=== PATIENT | female | born 1940 | race Caucasian/White ===

== ENCOUNTER 2016-09-27 11:03 | Emergency (ER) | payer BC ==
[2016-09-27] MEDS ORDERED: METHYLPREDNISOLONE PF 125MG/VIAL IVP ONE (11:18)
[2016-09-27] MEDS ORDERED: DIPHENHYDRAMINE HCL IV 50 MG/ML VIAL IVP ONE (11:18)
[2016-09-27] MEDS ORDERED: 0.9 % SODIUM CHLORIDE 1,000 ML BAG IV ONE (11:28)
--- NOTE | 2016-09-27 11:34 | Emergency Department Record ---
History of Present Illness - General Chief complaint: Bite Insect/other Stated complaint: BEE STING Time Seen by Provider: 09/27/16 11:18 Source: Patient Mode of Arrival: Ambulatory Limitations: No limitations - History of Present Illness Initial comments: pt was stung by a bee or wasp. she is allergic to bees. she did not use her epipen. she usually breaks out in hives and passes out. she has not broke out in a rash yet and is not sob. MD complaint: Insect bite/sting Onset/Timin -: Minutes(s) Hx Tetanus Toxoid Vaccination: (unsure) Location: [facility] hand Severity scale (1-10): 3 Improves with: None Worsens with: None Associated symptoms: Denies other symptoms - Related Data Home Medications Medication Instructions Recorded Confirmed Last Taken Clonazepam 0.5 mg PO BID 07/20/13 09/27/16 09/26/16 Epinephrine [Epipen] 0.3 mg IJ ASDIR PRN 07/20/13 09/27/16 07/20/13 15:00 Fenofibrate 50 mg PO ASDIR 11/04/15 09/27/16 09/26/16 Rosuvastatin Calcium [Crestor] 5 mg PO DAILY 11/04/15 09/27/16 09/26/16 Lisinopril [Zestril] 5 mg PO 09/27/16 09/26/16 Allergies Allergy/AdvReac Type Severity Reaction Status Date / Time ibuprofen [From Motrin] Allergy HIVES Verified 11/04/15 10:48 Penicillins Allergy HIVES Verified 11/04/15 10:48 sulfamethoxazole Allergy HIVES Verified 11/04/15 10:48 [From Bactrim] trimethoprim [From Bactrim] Allergy HIVES Verified 11/04/15 10:48 Travel Screening - Travel/Exposure Within Last 30 Days Have you traveled within the last 30 days?: No - Travel/Exposure Within Last Year Have you traveled outside the [place] in the last year?: No - Additonal Travel Details Have you been exposed to anyone with a communicable illness?: No - Travel Symptoms Symptom Screening: None Review of Systems Reviewed: No additional complaints except as noted below Constitutional: Reports: As per HPI. Denies: Chills, Fever, Malaise, Night sweats, Weakness, Weight change Eyes: Reports: As per HPI. Denies: Eye discharge, Eye pain, Photophobia, Vision change ENT: Reports: As per HPI. Denies: Congestion, Dental pain, Ear pain, Epistaxis , Hearing loss, Throat pain Respiratory: Reports: As per HPI. Denies: Cough, Dyspnea, Hemoptysis, Stridor, Wheezes Cardiovascular: Reports: As per HPI. Denies: Arrhythmia, Chest pain, Dyspnea on exertion, Edema, Murmurs, Orthopnea, Palpitations, Paroxysmal nocturnal dyspnea, Rheumatic Fever, Syncope Endocrine: Reports: As per HPI. Denies: Fatigue, Heat or cold intolerance, Polydipsia, Polyuria Gastrointestinal: Reports: As per HPI. Denies: Abdominal pain, Constipation, Diarrhea, Hematemesis, Hematochezia, Melena, Nausea, Vomiting Genitourinary: Reports: As per HPI. Denies: Abnormal menses, Discharge, Dyspareunia, Dysuria, Frequency, Hematuria, Incontinence, Retention, Urgency Musculoskeletal: Reports: As per HPI. Denies: Arthralgia, Back pain, Gout, Joint swelling, Myalgia, Neck pain Skin: Reports: As per HPI. Denies: Bruising, Change in color, Change in hair/ nails, Lesions, Pruritus, Rash Neurological: Reports: As per HPI. Denies: Abnormal gait, Confusion, Headache, Numbness, Paresthesias, Seizure, Tingling, Tremors, Vertigo, Weakness Psychiatric: Reports: As per HPI. Denies: Anxiety, Auditory hallucinations, Depression, Homicidal thoughts, Suicidal thoughts, Visual hallucinations Hematological/Lymphatic: Reports: As per HPI. Denies: Anemia, Blood Clots, Easy bleeding, Easy bruising, Swollen glands Past Medical History - SOCIAL HISTORY Smoking Status: Current every day smoker Alcohol Use: None Drug Use: None - RESPIRATORY Hx Respiratory Disorders: No - CARDIOVASCULAR Hx Cardio Disorders: Yes Hx Hypertension: (on meds to help kidney function) Comment:: high cholesterol - NEURO Hx Neuro Disorders: Yes Hx Neuropathy: Yes (Diagnosed in last 6 months) - GI Hx GI Disorders: Yes Hx GI Bleed: Yes (hbg 6.5) - Hx Genitourinary Disorders: Yes Hx Renal Disease: Yes (Recent diagnosis- Dr. 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) - MUSCULOSKELETAL Hx Musculoskeletal Disorders: No - PSYCH Hx Psych Problems: Yes Hx Anxiety: Yes ("panic attacks") - HEMATOLOGY/ONCOLOGY Hx Hematology/Oncology Disorders: Yes Hx Cancer: Yes (Breast cancer) Hx Radiation Therapy: Yes (2002) Hx Blood Transfusions: Yes (At 18yrs old) Hx Blood Transfusion Reaction: No Family Medical History Any Significant Family History?: No Family Hx Comment (NOT TO BE USED IN PLACE OF ITEMS BELOW): mother-von wildebrans Hx Cancer: Grandparents Hx Diabetes: Mother *Diabetes Comment: Age 72 at onset Hx Heart Disease: Grandparents Hx Seizures: Brother/Sister *Seizure Comment: Sister has MS and Lupus, some seizures Hx Stroke: Father Physical Exam - General General Appearance: Alert, Oriented x3, Cooperative, No acute distress - Head Head exam: Normal inspection - Eye Eye exam: Normal appearance, PERRL, EOMI Pupils: Normal accommodation - ENT ENT exam: Normal exam, Mucous membranes moist, Normal external ear exam, Normal orophraynx Ear exam: Normal external inspection. negative: External canal tenderness Nasal Exam: Normal inspection. negative: Discharge, Sinus tenderness Mouth exam: Normal external inspection, Tongue normal Teeth exam: Normal inspection. negative: Dental caries Throat exam: Normal inspection. negative: Tonsillar erythema, Tonsillar exudate - Neck Neck exam: Normal inspection, Full ROM. negative: Tenderness - Respiratory Respiratory exam: Normal lung sounds bilaterally. negative: Respiratory distress - Cardiovascular Cardiovascular Exam: Regular rate, Normal rhythm, Normal heart sounds - GI/Abdominal GI/Abdominal exam: Soft, Normal bowel sounds. negative: Tenderness - Rectal Rectal exam: Deferred - exam: Deferred - Extremities Extremities exam: Normal inspection, Full ROM, Normal capillary refill, Tenderness ( and swelling l hand), Other - Back Back exam: Reports: Normal inspection, Full ROM. Denies: Muscle spasm, Rash noted, Tenderness - Neurological Neurological exam: Alert, Normal gait, Oriented X3, Reflexes normal - Psychiatric Psychiatric exam: Normal affect, Normal mood - Skin Skin exam: Dry, Intact, Normal color, Warm Course Vital Signs 09/27/16 11:06 Temperature 97.8 F Pulse Rate 91 H Respiratory 20 Rate Blood Pressure 153/79 Pulse Ox 97 - Reevaluation(s) Reevaluation #1: 09/27/16 12:47 pt is feeling better Disposition Disposition: Discharge Clinical Impression: Bee sting allergy Bee sting Qualifiers: Encounter type: initial encounter Injury intent: undetermined intent Qualified Code(s): T63.444A - Toxic effect of venom of bees, undetermined, initial encounter Disposition: Home, Self-Care Condition: (1) Good Instructions: Insect Bite or Sting (ED) Additional Instructions: follow up with family doctor. return sooner if worse. continue benadryl if needed. Forms: Patient Portal Access Quality - Quality Measures Quality Measures: N/A - Blood Pressure Screening Blood Pressure Classification: Hypertensive Reading Systolic Measurement: 153 Diastolic Measurement: 79 Screening for High Blood Pressure: < First Hypertensive BP, F/U Documented > [ G8950] First Hypertensive Follow-up Interventions: Follow-up with rescreen GT 1 day and LT 4 weeks.
== END 2016-09-27 13:01 | disposition home or self-care (01) ==
LOC: ER 11:03
DX: T63.441A Toxic effect of venom of bees, accidental (unintentional), initial encounter (principal)
CPT/HCPCS: 96374; 96375; 99284; J1200; J2930; J7030

== ENCOUNTER 2016-10-22 09:00 | Emergency (ER) | payer BC ==
--- NOTE | 2016-10-22 09:17 | Emergency Department Record ---
History of Present Illness - General Chief complaint: Extremity Problem Stated complaint: L HAND SWOLLEN Time Seen by Provider: 10/22/16 09:09 Source: Patient Mode of Arrival: Ambulatory Limitations: No limitations - History of Present Illness Initial comments: The patient is here due to L wrist and hand pain for about a week. She denies any fall or trauma. The patient was stung in the L wrist about a month ago but did see her PCP and receive Steroid pills for that and did improve. Now about a week or so ago the L wrist and hand became painful. She states about 3 days ago the wrist started to swell also. There is no reported fever, chills, vomiting, TRACY, or rashes. MD Complaint: Extremity pain Onset/Timin -: Week(s) Location: Left, Hand Severity scale (1-10): 7 Consistency: Constant Improves with: Nothing Associated Symptoms: Denies other symptoms - Related Data Home Medications Medication Instructions Recorded Confirmed Last Taken Clonazepam 0.5 mg PO BID 07/20/13 10/22/16 09/26/16 Epinephrine [Epipen] 0.3 mg IJ ASDIR PRN 07/20/13 10/22/16 07/20/13 15:00 Fenofibrate 50 mg PO ASDIR 11/04/15 10/22/16 09/26/16 Rosuvastatin Calcium [Crestor] 5 mg PO DAILY 11/04/15 10/22/16 09/26/16 Lisinopril [Zestril] 5 mg PO QHS 09/27/16 10/22/16 10/21/16 Previous Rx's Medication Instructions Recorded Prednisone [Prednisone 20Mg] 40 mg PO DAILY #8 tab 10/22/16 Allergies Allergy/AdvReac Type Severity Reaction Status Date / Time ibuprofen [From Motrin] Allergy HIVES Verified 11/04/15 10:48 Penicillins Allergy HIVES Verified 11/04/15 10:48 sulfamethoxazole Allergy HIVES Verified 11/04/15 10:48 [From Bactrim] trimethoprim [From Bactrim] Allergy HIVES Verified 11/04/15 10:48 Travel Screening - Travel/Exposure Within Last 30 Days Have you traveled within the last 30 days?: No - Travel/Exposure Within Last Year Have you traveled outside the [place] in the last year?: No - Additonal Travel Details Have you been exposed to anyone with a communicable illness?: No - Travel Symptoms Symptom Screening: None Review of Systems Constitutional: Denies: Chills, Fever Eyes: Denies: Eye discharge ENT: Denies: Congestion Respiratory: Denies: Cough, Dyspnea Past Medical History - SOCIAL HISTORY Smoking Status: Current every day smoker Alcohol Use: None Drug Use: None - RESPIRATORY Hx Respiratory Disorders: No - CARDIOVASCULAR Hx Cardio Disorders: Yes Hx Hypertension: (on meds to help kidney function) Comment:: high cholesterol - NEURO Hx Neuro Disorders: Yes Hx Neuropathy: Yes (Diagnosed in last 6 months) - GI Hx GI Disorders: Yes Hx GI Bleed: Yes (hbg 6.5) - Hx Genitourinary Disorders: Yes Hx Renal Disease: Yes (Recent diagnosis- Dr. 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) - MUSCULOSKELETAL Hx Musculoskeletal Disorders: No - PSYCH Hx Psych Problems: Yes Hx Anxiety: Yes ("panic attacks") - HEMATOLOGY/ONCOLOGY Hx Hematology/Oncology Disorders: Yes Hx Cancer: Yes (Breast cancer) Hx Radiation Therapy: Yes (2002) Hx Blood Transfusions: Yes (At 18yrs old) Hx Blood Transfusion Reaction: No Family Medical History Any Significant Family History?: No Family Hx Comment (NOT TO BE USED IN PLACE OF ITEMS BELOW): mother-raquel paulinos Hx Cancer: Grandparents Hx Diabetes: Mother *Diabetes Comment: Age 72 at onset Hx Heart Disease: Grandparents Hx Seizures: Brother/Sister *Seizure Comment: Sister has MS and Lupus, some seizures Hx Stroke: Father Physical Exam - General General Appearance: Alert, Cooperative, No acute distress - Head Head exam: Atraumatic, Normocephalic, Normal inspection - Eye Eye exam: Normal appearance, PERRL - Neck Neck exam: Normal inspection, Full ROM. negative: Tenderness - Respiratory Respiratory exam: Normal lung sounds bilaterally. negative: Respiratory distress - Cardiovascular Cardiovascular Exam: Regular rate, Normal rhythm, Normal heart sounds - Extremities Extremities exam: Normal capillary refill, Tenderness (There is diffuse tenderness to the dorsal wrist to palpation with very mild warmth but no erythema.). negative: Normal inspection (There is slight edema to the dorsal wrist but no swelling to the fingers.), Full ROM (decreased flexion and extention due to pain.) - Neurological Neurological exam: Alert. negative: Motor sensory deficit Course Vital Signs 10/22/16 09:02 Temperature 98.1 F Pulse Rate 99 H Respiratory 16 Rate Blood Pressure 161/85 Pulse Ox 99 - Reevaluation(s) Reevaluation #1: The patient is doing a lot better at this time. I did explain to her that the issue I believe is due to an inflammatory arthropathy. We will place the patient on Prednisone and splint the wrist and have her F/U with her PCP early next week for recheck. 10/22/16 10:41 Medical Decision Making - Data Complexity MDM Data: Labs Ordered and/or Reviewed, X-Ray Ordered and/or Reviewed - Lab Data Result diagrams: 10/22/16 09:32 10/22/16 09:32 - Radiology Data Radiology results: Report reviewed (L wrist: Neg.) Disposition Disposition: Discharge Clinical Impression: Wrist arthropathy Disposition: Home, Self-Care Condition: (1) Good Instructions: Arthritis (ED) Additional Instructions: Please wear the splint for comfort and ice the wrist when possible. Please continue the Prednisone tomorrow. Please F/U with your PCP early next week. Return to the ER for any increased pain, swelling, fever or redness. Prescriptions: Prednisone [Prednisone 20Mg] 40 mg PO DAILY #8 tab Forms: Patient Portal Access Time of Disposition: 10:46 Quality - Quality Measures Quality Measures: N/A - Blood Pressure Screening View Details: Yes Does Patient Have Any of the Following: No Blood Pressure Classification: Pre-Hypertensive BP Reading Systolic Measurement: 161 Diastolic Measurement: 85 Screening for High Blood Pressure: < Pre-Hypertensive BP, F/U Documented > [ G8950] Pre-Hypertensive Follow-up Interventions: Referral to alternative/primary care provider.
[2016-10-22] MEDS: ACETAMINOPHEN 325 MG TAB PO ONE (09:25)
[2016-10-22 09:38] LABS: GRAN % 63.2 % (47-80); HEMATOCRIT 28.8 % (35.0-47.0); HEMOGLOBIN 9.5 gm/dl (11.6-16.0); LYMPH % 25.6 % (16-45); MEAN CELL VOLUME 91.7 fl (81-97); MEAN PLATELET VOLUME 8.7 fl (7.4-10.4); MONO % 10.2 % (0-9); PLATELET COUNT 386 K/uL (130-400); RED BLOOD COUNT 3.14 M/uL (3.80-5.40); RED CELL DISTRIBUTION WIDTH 15.2 % (11.5-14.5); WHITE BLOOD COUNT W/O DIFF 5.9 K/uL (4.2-12.2)
[2016-10-22 09:40] LABS: MEAN CORPUSCULAR HEMOGLOBIN 30.2 pg (27-33)
[2016-10-22 10:27] LABS: C-REACTIVE PROTEIN 3.6 mg/dL (0.0-0.9)
[2016-10-22 10:30] LABS: ERYTHROCYTE SEDIMENTATION RATE 97 mm/hr (0-30)
[2016-10-22] MEDS: PREDNISONE 20 MG TAB PO ONE (10:49)
--- NOTE | 2016-10-24 10:59 | RADIOLOGY REPORT ---
EXAM: LEFT WRIST, FOUR VIEWS HISTORY: PATIENT HAS GENERALIZED LEFT WRIST PAIN AND SWELLING RADIATING INTO THE PHALANGES OF THE LEFT HAND. NO HISTORY OF TRAUMA. TECHNIQUE: Four views of the left wrist were provided without comparison studies. FINDINGS: There is no radiographic evidence of a fracture or dislocation of the left wrist. No significant soft tissue swelling is noted. There is moderate joint space loss with marginal osteophyte formation of the first carpal metacarpal articulation. Alignment of the carpal bones are anatomic. IMPRESSION: OSTEOARTHRITIC CHANGES OF THE LEFT WRIST ARE NOTED WITHOUT RADIOGRAPHIC EVIDENCE OF AN ACUTE PROCESS INVOLVING THE LEFT WRIST. JOB NUMBER: [id number] MTDD
== END 2016-10-22 11:10 | disposition home or self-care (01) ==
LOC: ER 09:00
DX: M12.832 Other specific arthropathies, not elsewhere classified, left wrist (principal); I10 Essential (primary) hypertension; F17.210 Nicotine dependence, cigarettes, uncomplicated
CPT/HCPCS: 29125; 99283; 99284; 85025; 85651; 86140; 80048; 73110; J7512

== ENCOUNTER 2017-03-12 15:03 | Emergency (ER) | payer BC ==
[2017-03-12] MEDS ORDERED: ACETAMINOPHEN 500 MG TABLET PO ONE (16:16)
--- NOTE | 2017-03-12 16:21 | Emergency Department Record ---
History of Present Illness - General Chief Complaint: Cough Stated Complaint: CHEST CONGESTION,COUGH, Time Seen by Provider: 03/12/17 16:15 Source: Patient Mode of Arrival: Ambulatory Limitations: No limitations - History of Present Illness Initial Comments: 76 yo female presents to ED for evaluation of fever, body aches, and cough symptoms that began this morning. Patient denies recent illness, denies recent ill contacts. Patient denies health problems at her baseline, and denies nausea /vomiting or abdominal pain symptoms. Patient denies taking anything for her symptoms prior to arrival. MD Complaint: Cough, Fever Onset/Timin -: Hour(s) Severity: Moderate Severity scale (1-10): 6 Consistency: Constant Improves With: Nothing Worsens With: Deep breaths Associated Symptoms: Cough, Fever, Myalgias Treatments Prior to Arrival: None - Related Data Previous Rx's Medication Instructions Recorded Azithromycin [Zithromax] 250 mg PO DAILY #4 tablet 03/12/17 Promethazine HCl/Codeine 5 - 10 ml PO .AT BEDTIME PRN #118 03/12/17 [Phenergan W/Codeine] ml Allergies Allergy/AdvReac Type Severity Reaction Status Date / Time ibuprofen [From Motrin] Allergy HIVES Verified 03/12/17 16:07 Penicillins Allergy HIVES Verified 03/12/17 16:07 sulfamethoxazole Allergy HIVES Verified 03/12/17 16:07 [From Bactrim] trimethoprim [From Bactrim] Allergy HIVES Verified 03/12/17 16:07 Travel Screening - Travel/Exposure Within Last 30 Days Have you traveled within the last 30 days?: No Review of Systems Constitutional: Reports: Chills, Fever, Weakness. Denies: Malaise, Night sweats Eyes: Denies: Eye discharge, Eye pain ENT: Denies: Congestion, Ear pain, Epistaxis Respiratory: Reports: Cough. Denies: Dyspnea Cardiovascular: Denies: Chest pain, Dyspnea on exertion, Edema Endocrine: Denies: Fatigue, Heat or cold intolerance Gastrointestinal: Denies: Abdominal pain, Nausea, Vomiting Genitourinary: Denies: Incontinence, Retention Musculoskeletal: Reports: Myalgia. Denies: Arthralgia, Back pain, Gout, Joint swelling Skin: Denies: Bruising, Change in color Neurological: Reports: Headache. Denies: Abnormal gait, Confusion, Seizure Psychiatric: Denies: Anxiety Hematological/Lymphatic: Denies: Anemia, Blood Clots Past Medical History - SOCIAL HISTORY Smoking Status: Current every day smoker Alcohol Use: None Drug Use: None - RESPIRATORY Hx Respiratory Disorders: No - CARDIOVASCULAR Hx Cardio Disorders: Yes Comment:: high cholesterol - NEURO Hx Neuro Disorders: Yes Hx Neuropathy: Yes - GI Hx GI Disorders: Yes Hx GI Bleed: Yes - Hx Genitourinary Disorders: Yes Hx Renal Disease: Yes - ENDOCRINE Hx Endocrine Disorders: Yes Hx Thyroid Disease: Yes - MUSCULOSKELETAL Hx Musculoskeletal Disorders: Yes Hx Arthritis: Yes - PSYCH Hx Psych Problems: Yes Hx Anxiety: Yes ("panic attacks") - HEMATOLOGY/ONCOLOGY Hx Hematology/Oncology Disorders: Yes Hx Cancer: Yes (Breast cancer) Hx Radiation Therapy: Yes (2002) Hx Blood Transfusions: Yes (At 18yrs old) Hx Blood Transfusion Reaction: No Family Medical History Any Significant Family History?: Yes Family Hx Comment (NOT TO BE USED IN PLACE OF ITEMS BELOW): mother-raquel bhattrans Hx Cancer: Grandparents Hx Diabetes: Mother *Diabetes Comment: Age 72 at onset Hx Heart Disease: Grandparents Hx Seizures: Brother/Sister *Seizure Comment: Sister has MS and Lupus, some seizures Hx Stroke: Father Physical Exam - General General Appearance: Alert, Oriented x3, Cooperative, Moderate distress Limitations: No limitations - Head Head exam: Atraumatic, Normocephalic, Normal inspection Head exam detail: negative: Abrasion, Contusion, Colon's sign, General tenderness, Hematoma, Laceration - Eye Eye exam: Normal appearance. negative: Conjunctival injection, Periorbital swelling, Periorbital tenderness, Scleral icterus - ENT Ear exam: negative: Auricular hematoma, Auricular trauma Nasal Exam: negative: Active bleeding, Discharge, Dried blood, Foreign body Mouth exam: negative: Drooling, Laceration, Tongue elevation - Neck Neck exam: Normal inspection. negative: Meningismus, Tenderness - Respiratory Respiratory exam: Decreased breath sounds. negative: Rales, Respiratory distress, Rhonchi, Stridor - Cardiovascular Cardiovascular Exam: Normal rhythm, Normal heart sounds, Tachycardia - GI/Abdominal GI/Abdominal exam: Soft. negative: Rebound, Rigid, Tenderness - Rectal Rectal exam: Deferred - exam: Deferred - Extremities Extremities exam: Normal inspection. negative: Calf tenderness, Pedal edema, Tenderness - Back Back exam: Denies: CVA tenderness (R), CVA tenderness (L) - Neurological Neurological exam: Alert, Normal gait, Oriented X3 - Psychiatric Psychiatric exam: Normal affect, Normal mood - Skin Skin exam: Normal color. negative: Abrasion Type of lesion: negative: abrasion Course Vital Signs 03/12/17 16:03 Temperature 102.0 F H Pulse Rate 125 H Respiratory 20 Rate Blood Pressure 97/57 Pulse Ox 96 - Reevaluation(s) Reevaluation #1: 03/12/17 17:33 Labs reviewed, WBC 10.1 with 83% neutrophils, Hgb 9.9, Glucose 150. Influenza negative. CXR: No acute process Patient was updated on all results, will initiate treatement with Rocephin IV and Zithromax orally for probable early CAP. Patient was offered admission for her symptoms, declined at this time. Will treat with oral Zithromax following discharge with encouragement to return to ED immediately for any worsening of her symptoms. Patient agrees with the plan as discussed. Reevaluation #2: 03/12/17 17:41 Medical Decision Making - Lab Data Result diagrams: 03/12/17 16:27 03/12/17 16:27 Disposition Disposition: Discharge Clinical Impression: CAP (community acquired pneumonia) Qualifiers: Laterality: unspecified laterality Qualified Code(s): J18.9 - Pneumonia, unspecified organism Fever Qualifiers: Fever type: unspecified Qualified Code(s): R50.9 - Fever, unspecified Disposition: Home, Self-Care Condition: (2) Stable Instructions: Community Acquired Pneumonia (ED) Additional Instructions: Return to ED if your symptoms worsen or if you have any concerns. Zithromax and phenergan with codeine as directed. Follow-up with your family doctor in 1-3 days as directed. Prescriptions: Azithromycin [Zithromax] 250 mg PO DAILY #4 tablet Promethazine HCl/Codeine [Phenergan W/Codeine] 5 - 10 ml PO .AT BEDTIME PRN # 118 ml PRN Reason: Cough Forms: Patient Portal Access Time of Disposition: 18:04 Quality - Quality Measures Quality Measures: N/A - Blood Pressure Screening Does Patient Have Any of the Following: No Blood Pressure Classification: Normal BP Reading Systolic Measurement: 97 Diastolic Measurement: 57 Screening for High Blood Pressure: < Normal BP, F/U Not Required > [G8783]
[2017-03-12 16:30] LABS: INFLUENZA A NEGATIVE (NEGATIVE); INFLUENZA B NEGATIVE (NEGATIVE)
[2017-03-12] MEDS ORDERED: 0.9 % SODIUM CHLORIDE 1000ML 1,000 ML IV SCH (16:30)
[2017-03-12 16:48] LABS: HEMOGLOBIN 9.9 gm/dl (11.6-16.0); MEAN CELL VOLUME 87.8 fl (81-97); MEAN CORPUSCULAR HGB CONC 31.9 g/dl (32-36); MEAN PLATELET VOLUME 10.1 fl (7.4-10.4); PLATELET COUNT 391 K/uL (130-400); RED BLOOD COUNT 3.53 M/uL (3.80-5.40); RED CELL DISTRIBUTION WIDTH 16.5 % (11.5-14.5); WHITE BLOOD COUNT W/O DIFF 10.1 K/uL (4.2-12.2)
[2017-03-12 17:03] LABS: BILIRUBIN,TOTAL 0.4 mg/dL (0.2-1.0)
[2017-03-12 17:04] LABS: HYPOCHROMIA 1+; PLATELET ESTIMATE NORMAL (NORMAL); TOTAL PROTEIN 6.8 g/dL (6.6-8.7)
[2017-03-12 17:09] LABS: ALB/GLOB RATIO 1.2 (1.1-1.8); ALBUMIN 3.7 g/dL (4.0-5.0)
[2017-03-12] MEDS ORDERED: KCENTRA (PCC) 1,000 UNIT KIT IV ONE (17:24)
[2017-03-12] MEDS ORDERED: AZITHROMYCIN 500 MG TABLET PO ONE (17:31)
[2017-03-12] MEDS ORDERED: CEFTRIAXONE SODIUM 1 GM in 0.9 % SODIUM CHLORIDE 100ML 100 ML IVPB ONE (17:31)
--- NOTE | 2017-03-14 01:05 | RADIOLOGY REPORT ---
EXAM: CHEST 2 VIEWS HISTORY: FEVER AND COUGH. TECHNIQUE: Chest, two view. COMPARISON: None. FINDINGS: The heart is not enlarged. Coarsened interstitial markings within the lungs, likely related to scarring/fibrosis. No focal consolidation or pleural effusion. Previous surgical change right humeral head. IMPRESSION: NO ACUTE CARDIOPULMONARY ABNORMALITY. JOB NUMBER: [id number] MTDD
== END 2017-03-12 18:35 | disposition home or self-care (01) ==
LOC: ER 15:03
DX: J18.9 Pneumonia, unspecified organism (principal); R50.81 Fever presenting with conditions classified elsewhere; F17.210 Nicotine dependence, cigarettes, uncomplicated
CPT/HCPCS: 71020; 80053; 85027; 87400; 96374; 99284; J7030

== ENCOUNTER 2017-03-25 15:14 | Inpatient (IN) | payer BC ==
[2017-03-25] MEDS ORDERED: 0.9 % SODIUM CHLORIDE 1,000 ML BAG IV ONE ×2 (15:29→16:28)
--- NOTE | 2017-03-25 15:37 | Emergency Department Record ---
History of Present Illness - General Chief Complaint: Difficulty Breathing Stated Complaint: DINORA Time Seen by Provider: 03/25/17 15:24 Source: Patient, Family Mode of Arrival: EMS Limitations: No limitations - History of Present Illness Initial Comments: The patient is here due to feeling increased weakness for the last day. She has had 2 weeks of cough, congestion, and intermittent dyspnea. She denies any CP, AP, or back pain but has had aching all over recently with the increased weakness. There is no reported fever, chills, TRACY or visual changes but her stools may have been dark recently. She was in the ER 2 weeks ago for similar issues and was discharged on Zithromax. Subsequently she did see her PCP and was treated with Levaquin. She did have a neg FLU test 2 weeks ago. MD Complaint: Shortness of breath Onset/Timin -: Week(s) Severity: Mild Severity scale (1-10): 5 Quality: Aching - Related Data Home Medications Medication Instructions Recorded Confirmed Last Taken Levofloxacin [Levaquin] 500 mg PO DAILY 03/25/17 03/25/17 03/25/17 Allergies Allergy/AdvReac Type Severity Reaction Status Date / Time ibuprofen [From Motrin] Allergy HIVES Verified 03/25/17 15:22 Penicillins Allergy HIVES Verified 03/25/17 15:22 sulfamethoxazole Allergy HIVES Verified 03/25/17 15:22 [From Bactrim] trimethoprim [From Bactrim] Allergy HIVES Verified 03/25/17 15:22 Travel Screening - Travel/Exposure Within Last 30 Days Have you traveled within the last 30 days?: No - Travel/Exposure Within Last Year Have you traveled outside the [place] in the last year?: No - Additonal Travel Details Have you been exposed to anyone with a communicable illness?: No - Travel Symptoms Symptom Screening: None Review of Systems Constitutional: Denies: Chills, Fever Eyes: Denies: Eye discharge ENT: Denies: Congestion Respiratory: Reports: Cough, Dyspnea Cardiovascular: Denies: Arrhythmia, Chest pain Endocrine: Reports: Fatigue Gastrointestinal: Denies: Diarrhea Genitourinary: Denies: Dysuria Musculoskeletal: Denies: Arthralgia Past Medical History - SOCIAL HISTORY Smoking Status: Former smoker Alcohol Use: None Drug Use: None - RESPIRATORY Hx Pneumonia: Yes (treated recently) - CARDIOVASCULAR Hx Cardio Disorders: Yes Comment:: high cholesterol - NEURO Hx Neuro Disorders: Yes Hx Neuropathy: Yes - GI Hx GI Disorders: Yes Hx GI Bleed: Yes - Hx Genitourinary Disorders: Yes Hx Renal Disease: Yes - ENDOCRINE Hx Endocrine Disorders: Yes Hx Thyroid Disease: Yes - MUSCULOSKELETAL Hx Musculoskeletal Disorders: Yes Hx Arthritis: Yes - PSYCH Hx Psych Problems: Yes Hx Anxiety: Yes ("panic attacks") - HEMATOLOGY/ONCOLOGY Hx Hematology/Oncology Disorders: Yes Hx Cancer: Yes (Breast cancer) Hx Radiation Therapy: Yes (2002) Hx Blood Transfusions: Yes (At 18yrs old) Hx Blood Transfusion Reaction: No Family Medical History Any Significant Family History?: Yes Family Hx Comment (NOT TO BE USED IN PLACE OF ITEMS BELOW): mother-von wildebrans Hx Cancer: Grandparents Hx Diabetes: Mother *Diabetes Comment: Age 72 at onset Hx Heart Disease: Grandparents Hx Seizures: Brother/Sister *Seizure Comment: Sister has MS and Lupus, some seizures Hx Stroke: Father Physical Exam - General General Appearance: Alert, Oriented x3, Cooperative, No acute distress - Head Head exam: Atraumatic, Normocephalic, Normal inspection - Eye Eye exam: Normal appearance, PERRL, EOMI - ENT Throat exam: Normal inspection. negative: Tonsillar erythema, Tonsillar exudate - Neck Neck exam: Normal inspection, Full ROM. negative: Tenderness - Respiratory Respiratory exam: Normal lung sounds bilaterally. negative: Respiratory distress - Cardiovascular Cardiovascular Exam: Regular rate, Normal rhythm, Normal heart sounds - GI/Abdominal GI/Abdominal exam: Soft, Normal bowel sounds. negative: Tenderness - Rectal Rectal exam: Black stool, Heme (+) stool - Extremities Extremities exam: Normal inspection, Full ROM, Normal capillary refill. negative: Tenderness - Neurological Neurological exam: Alert, Oriented X3. negative: Altered, Motor sensory deficit - Skin Skin exam: Pallor (mildly. ) Course Vital Signs 03/25/17 15:16 Temperature 97.8 F Pulse Rate 115 H Respiratory 16 Rate Blood Pressure 85/54 Pulse Ox 99 - Reevaluation(s) Reevaluation #1: The patient is doing much better at this time. Her BP is improved and she denies any pain or discomfort and she appears to feel better after the IVF was given. I did discuss the lab results with the patient and the need for admission and she does agree. 03/25/17 16:22 Reevaluation #2: I did discuss the case with Dr. Garner and he does accept the admission. 03/25/17 16:27 Reevaluation #3: The patient had a 2nd EKG prior to transfer to the floor and it was neg for ischemia. She was very stable at the time of transfer. Her vitals were normal and she denied any pain or discomfort. Her blood is almost ready per the floor. 03/25/17 17:50 03/25/17 17:58 Medical Decision Making - Data Complexity MDM Data: Labs Ordered and/or Reviewed, X-Ray Ordered and/or Reviewed, EKG Ordered and/or Reviewed - Lab Data Result diagrams: 03/25/17 14:51 03/25/17 14:51 - EKG Data -: EKG Interpreted by Me EKG: No Acute Changes, Unchanged From Previous - Radiology Data Radiology results: Report reviewed (CXR: Poss mild pulm vascular congestion. No acute infiltrate.) Disposition Disposition: Admit Clinical Impression: GI bleed Qualifiers: GI bleed type/associated pathology: unspecified gastrointestinal hemorrhage type Qualified Code(s): K92.2 - Gastrointestinal hemorrhage, unspecified CAP (community acquired pneumonia) Qualifiers: Laterality: unspecified laterality Qualified Code(s): J18.9 - Pneumonia, unspecified organism Disposition: Still a Patient at [facility] Decision to Admit: Admit from ER Decision to Admit Date: 03/25/17 Decision to Admit Time: 16:28 Accepting Physician: Patsy Time Discussed w/Accepting Physician: 16:28 Condition: (2) Stable Time of Disposition: 16:28 Quality - Quality Measures Quality Measures: N/A - Blood Pressure Screening View Details: Yes Does Patient Have Any of the Following: No Blood Pressure Classification: Normal BP Reading Systolic Measurement: 85 Diastolic Measurement: 54 Screening for High Blood Pressure: < Normal BP, F/U Not Required > [G8783]
[2017-03-25 15:43] LABS: MEAN CELL VOLUME 89.3 fl (81-97); MEAN PLATELET VOLUME 9.5 fl (7.4-10.4); PLATELET COUNT 593 K/uL (130-400); RED BLOOD COUNT 2.24 M/uL (3.80-5.40); RED CELL DISTRIBUTION WIDTH 16.5 % (11.5-14.5); WHITE BLOOD COUNT W/O DIFF 9.9 K/uL (4.2-12.2)
[2017-03-25 15:49] LABS: MEAN CORPUSCULAR HEMOGLOBIN 28.5 pg (27-33)
[2017-03-25 15:51] LABS: HEMOGLOBIN 6.4 gm/dl (11.6-16.0)
[2017-03-25 15:56] LABS: BLOOD UREA NITROGEN 73 mg/dL (8-23); CREATININE 1.4 mg/dL (0.5-0.9); EST GLOMERULAR FILTRATION RATE 39 mL/min
[2017-03-25 15:59] LABS: GLUCOSE,RANDOM 141 mg/dL (74-109)
[2017-03-25 16:01] LABS: CREATINE PHOSPHOKINASE 49 U/L (26-192)
[2017-03-25 16:03] LABS: CKMB 4.4 ng/mL (<3.77)
[2017-03-25 16:16] LABS: ANISOCYTOSIS 1+
[2017-03-25 16:18] LABS: INR 1.02; PARTIAL THROMBOPLASTIN TIME 25.7 SECONDS (24.5-39.1)
[2017-03-25 17:14] LABS: ABO GROUP O; ANTIBODY SCREEN NEGATIVE (NEGATIVE); RH TYPE POSITIVE
[2017-03-25 17:28] LABS: IMMED. SPIN CROSSMATCH COMPATIBLE
[2017-03-25 17:28] LABS: IMMED. SPIN CROSSMATCH COMPATIBLE
[2017-03-25] MEDS ORDERED: PANTOPRAZOLE SODIUM IV 40 MG VIAL IVP SCH (17:30)
[2017-03-25] MEDS ORDERED: ACETAMINOPHEN 500 MG TABLET PO PRN (17:30)
[2017-03-25] MEDS ORDERED: PNEUM 13-VAL/PF 0.5 ML IM ONE (18:53)
[2017-03-25] MEDS: CEFTRIAXONE SODIUM 1 GM in 0.9 % SODIUM CHLORIDE 100ML 100 ML IVPB SCH (20:13)
[2017-03-25] MEDS: PANTOPRAZOLE SODIUM IV 40 MG VIAL IVP SCH (21:25)
[2017-03-25 22:17] LABS: HEMATOCRIT 18.5 % (35.0-47.0)
[2017-03-25 22:35] LABS: CKMB 4.4 ng/mL (<3.77)
[2017-03-26 02:12] LABS: HEMATOCRIT 21.5 % (35.0-47.0)
[2017-03-26 02:17] LABS: HEMOGLOBIN 6.9 gm/dl (11.6-16.0)
[2017-03-26 02:30] LABS: IMMED. SPIN CROSSMATCH COMPATIBLE
[2017-03-26 06:50] LABS: HEMATOCRIT 26.5 % (35.0-47.0); HEMOGLOBIN 8.6 gm/dl (11.6-16.0); MEAN CELL VOLUME 87.7 fl (81-97); MEAN CORPUSCULAR HGB CONC 32.5 g/dl (32-36); MEAN PLATELET VOLUME 9.5 fl (7.4-10.4); PLATELET COUNT 357 K/uL (130-400); RED BLOOD COUNT 3.02 M/uL (3.80-5.40); RED CELL DISTRIBUTION WIDTH 15.4 % (11.5-14.5); WHITE BLOOD COUNT W/O DIFF 9.1 K/uL (4.2-12.2)
[2017-03-26 06:53] LABS: MEAN CORPUSCULAR HEMOGLOBIN 28.4 pg (27-33)
[2017-03-26 07:05] LABS: CREATININE 1.2 mg/dL (0.5-0.9)
[2017-03-26 07:18] LABS: CKMB 5.2 ng/mL (<3.77)
[2017-03-26] MEDS: ALBUTEROL HFA 8 GM INHALER INH PRN ×3 (09:31→19:13)
[2017-03-26] MEDS: PANTOPRAZOLE SODIUM IV 40 MG VIAL IVP SCH ×2 (09:47→22:49)
[2017-03-26] MEDS: CEFTRIAXONE SODIUM 1 GM in 0.9 % SODIUM CHLORIDE 100ML 100 ML IVPB SCH ×2 (09:56→19:37)
[2017-03-26] MEDS ORDERED: FUROSEMIDE IV 20MG/2ML VIAL IVP ONE (11:24)
[2017-03-26 14:03] LABS: HEMATOCRIT 25.6 % (35.0-47.0); HEMOGLOBIN 8.3 gm/dl (11.6-16.0)
--- NOTE | 2017-03-26 19:50 | RADIOLOGY REPORT ---
EXAM: CHEST 1 VIEW HISTORY: DIFFICULTY BREATHING. TECHNIQUE: A single portable AP semiupright view of the chest was performed. FINDINGS: The heart size is normal. There is mild pulmonary vascular congestion. IMPRESSION: MILD PULMONARY VASCULAR CONGESTION. JOB NUMBER: [id number] MTDD
[2017-03-26 21:58] LABS: HEMATOCRIT 21.4 % (35.0-47.0)
[2017-03-26 22:15] LABS: IMMED. SPIN CROSSMATCH COMPATIBLE
[2017-03-27 03:10] LABS: HEMATOCRIT 23.8 % (35.0-47.0); HEMOGLOBIN 7.7 gm/dl (11.6-16.0)
[2017-03-27 04:09] LABS: IMMED. SPIN CROSSMATCH COMPATIBLE
--- NOTE | 2017-03-27 07:52 | History and Physical Report ---
DATE: 03/26/2017 at 11:15 a.m. CHIEF COMPLAINT: Melenic stools, GI positive for blood, upper GI bleed. HISTORY OF PRESENT ILLNESS: This 76-year-old female states that she noticed black stools approximately 2 days ago. She came into the emergency department for evaluation and was seen by Dr. Akbar, admitted to the hospital for a GI bleed, serial hemoglobin, and blood transfusion. Her initial hemoglobin was 6.4, dropped down to 6.0 and is now up to 8.6. She received 3 units of blood through the night. PAST MEDICAL HISTORY: Upper GI bleed in 2016. She had an EGD, colonoscopy, and swallowed a camera. At that time they did not find any significant bleeding spots and she had one polyp in the colon. She also has some kidney insufficiency and she uses lisinopril 5 mg once a day for that. Approximately 2 weeks ago she had an infection that was diagnosed clinically as pneumonia; however, the chest x-ray was negative. She was given azithromycin and still has a cough from that. Influenza is going through the community at this time and more likely it was influenza. However, the influenza screen was negative at that time. She is on Levaquin. She saw Dr. Mcnulty in the midst of her infection and he might have switched her from azithromycin to Levaquin. She has one pill left. She was given Rocephin in the ER this admission because of this residual cough and possible lung infection. She had a brain natriuretic peptide done which was elevated. She has never had any heart problems in the past. She also had breast cancer in 2002. PAST SURGICAL HISTORY: She had a left knee replacement in 2009, right shoulder rotator cuff and plate with screws, left breast biopsy, hysterectomy, hemorrhoidectomy, tonsillectomy, appendectomy, left ankle fusion x3, left lumpectomy, and partial thyroidectomy. Colonoscopy. MEDICATIONS: 1. Lisinopril 5 mg at bedtime. 2. Epinephrine pens p.r.n. allergies. 3. She was on Levaquin, only 1 pill left. ALLERGIES: SULFA, PENICILLIN, IBUPROFEN. She received one dose of Rocephin in the emergency department without difficulties. FAMILY/PSYCHOSOCIAL HISTORY: Grandparents had cancer, mother diabetes, grandparents heart disease, brother and sister have seizures, sister has MS and lupus and some seizures, father had a stroke. REVIEW OF SYSTEMS: HEENT: She has slight congestion but feels much better from her cough, cold, and congestion. Occasional cough from 03/12/2017. Cardiovascular: No chest pain, palpitations. She was very weak when she came into the hospital yesterday, feeling much stronger. Respiratory: No cough, cold, or congestion. She does have some scant rales in the bases posteriorly. Gastrointestinal: No abdominal pain, just black stools. There is some red hue around them. She has had 3 stools for the night and a couple before she came into the hospital. Genitourinary: No dysuria, hematuria, frequency, or burning on urination. Musculoskeletal: No joint or bone abnormalities. Neurological: No CVA, paralysis, or paresthesias. Gynecological: No new lumps in her breasts or abnormal vaginal bleeding. Endocrine: No diabetes or thyroid disease. Integument: No rash, ulcers, change in moles, or yellow skin. PHYSICAL EXAMINATION: VITALS: Height 5 feet 3 inches, weight 157 pounds. Temperature 98.6, pulse 106, blood pressure 123/61, respiratory rate 20. During the night her blood pressure was as low as 80/60 and is the reason we did not give the lisinopril or the Lasix during the night. She is feeling much better with the third unit of blood and her blood pressure has gone up into a reasonable area where we can now start to give a little Lasix, one dose of Lasix 20 mg IV administered at this time. HEENT: Pupils are equal, round, and reactive to light and accommodation. Extraocular muscles are intact. Throat is clear. Nose is clear. Tympanic membranes are reid. NECK: Supple. No jugular venous distention. No hepatojugular reflux. No carotid bruits. Thyroid is smooth. CARDIOVASCULAR: Regular rate and rhythm without murmurs, clicks, rubs, or gallops. RESPIRATORY: Clear to auscultation and percussion. ABDOMEN: Soft, nontender. No hepatosplenomegaly, no masses, no tenderness. Bowel sounds are active. No bruits. EXTREMITIES: No pitting edema. No cyanosis, no clubbing. Full range of motion. Peripheral pulses are good. BREASTS: Deferred. GYNECOLOGICAL: Exam deferred. RECTAL: Exam deferred. Rectal exam was done in the emergency department and was Hemoccult positive. GENITALIA: Normal female genitalia NEUROLOGIC: Cranial nerves II-XII intact. No gross defects. Sensation normal, strength normal. Deep tendon reflexes equal bilaterally with Babinski negative. MENTAL STATUS: Alert and oriented x3. IMPRESSION: 1. Upper GI bleed. 2. Renal insufficiency. PLAN: The 3 units of blood were transfused through the night. We will do serial hemoglobin every 8 hours and see that she is stable with her GI bleeding. We will contact GI to see when they want to reevaluate her. INPATIENT CERTIFICATION: Admitted to inpatient care. Based on my medical assessment, after consideration of patient's risk factors, age, comorbidities, and patient's presenting symptoms and acuity, I expect that this patient will remain in the hospital greater than or equal to 2 midnights and that the services needed warrant inpatient care because of GI bleed. Estimated length of stay is 3 days. The patient may reasonably be expected to be discharged or transferred to a hospital within 96 hours after admission to [facility]. I certify that my determination is in accordance with my understanding of Medicare requirements for reasonable and necessary inpatient care. MAHESH
[2017-03-27 07:53] LABS: HEMOGLOBIN 9.9 gm/dl (11.6-16.0)
[2017-03-27] MEDS: CEFTRIAXONE SODIUM 1 GM in 0.9 % SODIUM CHLORIDE 100ML 100 ML IVPB SCH (09:46)
[2017-03-27] MEDS: PANTOPRAZOLE SODIUM IV 40 MG VIAL IVP SCH (10:30)
--- NOTE | 2017-03-27 12:20 | Discharge Summary ---
DATE: 03/27/2017 DISCHARGE DIAGNOSES: 1. Upper gastrointestinal bleed. 2. Increased brain natriuretic peptide found in the emergency department. The patient would probably benefit from an echocardiogram to make sure she does not have some undiagnosed cardiac problem. 3. Renal insufficiency, mild. ATTENDING PHYSICIAN: Marshall Garner DO REASON FOR HOSPITALIZATION: Melenic stools, GI positive for blood, upper GI bleed. This 76-year-old female noticed black stools approximately 2 days prior to coming to the emergency department. She was evaluated by Dr. Akbar, admitted to the hospital for GI bleed, serial hemoglobin, blood transfusion, and further evaluation. SIGNIFICANT FINDINGS: Initially the hemoglobin in the emergency department was 6.4, it dropped down to 6.0 and up to 8.6 yesterday; however, last night it dropped down again to 7.0 requiring 2 more units of blood. The patient has had no respiratory problems, no dyspnea, no chest pain. The chest x-ray in the emergency department showed mild pulmonary vascular congestion but she had no clinical symptoms of respiratory problems. Laboratory stated above. Initial hemoglobin was 6.9, it went up to 8.6 after 3 units of blood and then dropped down to 7.0, after 2 more units of blood went up to 9.9. White cell count was 9100 the last time checked. Potassium 5.0. Cardiac enzymes x2 were negative. The brain natriuretic peptide was 2123. Occult blood was positive. She had melenic stools. Phone consultation with [facility] doctor, Dr. Costello. Actually, initially thought it was Dr. Wheeler but Dr. Costello responded to me. They felt transfer to [facility] would be the next best thing with the amount of blood that has been transferred for further GI workup. CONDITION ON DISCHARGE: Stable, improving but still guarded because of the bleeding she had, has gone through 5 units of blood. She said her stools were more formed today and seem to be less bloody but during the night they were maroon colored. PLAN: Transfer the patient to [facility] by ambulance for Dr. Olvera who is on the D service, admit for an admission and then to get an [facility] doctor to evaluate her for further testing, possible EGD and other testing. She may also need an echocardiogram because of the brain natriuretic peptide to be up, she has had no cardiac problems before, to make sure that she has good cardiac status. Her EKG was no acute changes and she had 2 sets of cardiac enzymes which were negative. CC: Dr. Pricila ARAGON
== END 2017-03-27 19:15 | disposition short-term general hospital (02) | DRG 812 ==
LOC: ER 15:14 → MEDSURG 17:26
PROVIDERS: ADMIT Emergency Medicine; ATTEND Emergency Medicine
PROC: 30233N1 Transfusion of Nonautologous Red Blood Cells into Peripheral Vein, Percutaneous Approach (ICD-10-PCS; principal; 2017-03-25)
DX: D62 Acute posthemorrhagic anemia (principal); K92.1 Melena; N28.9 Disorder of kidney and ureter, unspecified; R79.89 Other specified abnormal findings of blood chemistry; Z87.891 Personal history of nicotine dependence; E78.00 Pure hypercholesterolemia, unspecified; Z85.3 Personal history of malignant neoplasm of breast; R53.1 Weakness
CPT/HCPCS: 71045; 80048; 82272; 82550; 82553; 83605; 83880; 84484; 85014; 85018; 85027; 85610; 85730; 86850; 86900; 86901; 93005; 93010; 94640; 94761; 96374; 99223; 99239; 99285; C9113; J1940; J7030

== ENCOUNTER 2017-04-11 08:39 | Emergency (ER) | payer BC ==
--- NOTE | 2017-04-11 09:16 | Emergency Department Record ---
History of Present Illness - General Chief complaint: Weakness Stated complaint: WEAKNESS Time Seen by Provider: 04/11/17 08:59 Source: Patient Mode of Arrival: Wheelchair Limitations: No limitations - History of Present Illness Initial comments: pt feels weak . she had a black stool this morning. she was recently dxd w duodenal ulcer after a gi bleed. her last hgb was 9.2. MD Complaint: Generalized weakness, Lack of energy Onset/Timin -: Hour(s) - [place] Coma Scale Eye Response: (4) Open spontaneously Motor Response: (6) Obeys commands Verbal Response: (5) Oriented [place] Total: 15 - Related Data Home Medications Medication Instructions Recorded Confirmed Last Taken Pantoprazole Sodium [Protonix] 40 mg PO BID 04/11/17 04/11/17 Unknown Allergies Allergy/AdvReac Type Severity Reaction Status Date / Time ibuprofen [From Motrin] Allergy HIVES Verified 04/11/17 09:03 Penicillins Allergy HIVES Verified 04/11/17 09:03 sulfamethoxazole Allergy HIVES Verified 04/11/17 09:03 [From Bactrim] trimethoprim [From Bactrim] Allergy HIVES Verified 04/11/17 09:03 Travel Screening - Travel/Exposure Within Last 30 Days Have you traveled within the last 30 days?: No - Travel/Exposure Within Last Year Have you traveled outside the [place] in the last year?: No - Additonal Travel Details Have you been exposed to anyone with a communicable illness?: No - Travel Symptoms Symptom Screening: None Review of Systems Reviewed: No additional complaints except as noted below Constitutional: Reports: As per HPI. Denies: Chills, Fever, Malaise, Night sweats, Weakness, Weight change Eyes: Reports: As per HPI. Denies: Eye discharge, Eye pain, Photophobia, Vision change ENT: Reports: As per HPI. Denies: Congestion, Dental pain, Ear pain, Epistaxis , Hearing loss, Throat pain Respiratory: Reports: As per HPI. Denies: Cough, Dyspnea, Hemoptysis, Stridor, Wheezes Cardiovascular: Reports: As per HPI. Denies: Arrhythmia, Chest pain, Dyspnea on exertion, Edema, Murmurs, Orthopnea, Palpitations, Paroxysmal nocturnal dyspnea, Rheumatic Fever, Syncope Endocrine: Reports: As per HPI. Denies: Fatigue, Heat or cold intolerance, Polydipsia, Polyuria Gastrointestinal: Reports: As per HPI, Melena. Denies: Abdominal pain, Constipation, Diarrhea, Hematemesis, Hematochezia, Nausea, Vomiting Genitourinary: Reports: As per HPI. Denies: Abnormal menses, Discharge, Dyspareunia, Dysuria, Frequency, Hematuria, Incontinence, Retention, Urgency Musculoskeletal: Reports: As per HPI. Denies: Arthralgia, Back pain, Gout, Joint swelling, Myalgia, Neck pain Skin: Reports: As per HPI. Denies: Bruising, Change in color, Change in hair/ nails, Lesions, Pruritus, Rash Neurological: Reports: As per HPI. Denies: Abnormal gait, Confusion, Headache, Numbness, Paresthesias, Seizure, Tingling, Tremors, Vertigo, Weakness Psychiatric: Reports: As per HPI. Denies: Anxiety, Auditory hallucinations, Depression, Homicidal thoughts, Suicidal thoughts, Visual hallucinations Hematological/Lymphatic: Reports: As per HPI. Denies: Anemia, Blood Clots, Easy bleeding, Easy bruising, Swollen glands Past Medical History - SOCIAL HISTORY Smoking Status: Former smoker Alcohol Use: None Drug Use: None - RESPIRATORY Hx Respiratory Disorders: Yes Hx Asthma: No Hx Bronchitis: No Hx COPD: No Hx Dyspnea: No Hx Pneumonia: Yes (treated recently) Hx Pulmonary Embolism: No Hx Sleep Apnea: No Hx Tuberculosis: No Hx of CPAP: No - CARDIOVASCULAR Hx Cardio Disorders: Yes Comment:: high cholesterol - NEURO Hx Neuro Disorders: Yes Hx Neuropathy: Yes - GI Hx GI Disorders: Yes Hx GI Bleed: Yes - Hx Genitourinary Disorders: Yes Hx Renal Disease: Yes - ENDOCRINE Hx Endocrine Disorders: Yes Hx Thyroid Disease: Yes - MUSCULOSKELETAL Hx Musculoskeletal Disorders: Yes Hx Arthritis: Yes - PSYCH Hx Psych Problems: Yes Hx Anxiety: Yes ("panic attacks") - HEMATOLOGY/ONCOLOGY Hx Hematology/Oncology Disorders: Yes Hx Cancer: Yes (Breast cancer) Hx Radiation Therapy: Yes (2002) Hx Blood Transfusions: Yes (At 18yrs old) Hx Blood Transfusion Reaction: No Family Medical History Any Significant Family History?: Yes Family Hx Comment (NOT TO BE USED IN PLACE OF ITEMS BELOW): mother-von wildebrans Hx Cancer: Grandparents Hx Diabetes: Mother *Diabetes Comment: Age 72 at onset Hx Heart Disease: Grandparents Hx Seizures: Brother/Sister *Seizure Comment: Sister has MS and Lupus, some seizures Hx Stroke: Father Physical Exam - General General Appearance: Alert, Oriented x3, Cooperative, Mild distress - Head Head exam: Normal inspection - Eye Eye exam: Normal appearance, PERRL Pupils: Normal accommodation - ENT ENT exam: Normal exam, Mucous membranes moist, Normal external ear exam, Normal orophraynx, TM's normal bilaterally Ear exam: Normal external inspection. negative: External canal tenderness Nasal Exam: Normal inspection. negative: Discharge, Sinus tenderness Mouth exam: Normal external inspection, Tongue normal Teeth exam: Normal inspection. negative: Dental caries Throat exam: Normal inspection. negative: Tonsillar erythema, Tonsillar exudate - Neck Neck exam: Normal inspection, Full ROM. negative: Tenderness - Respiratory Respiratory exam: Normal lung sounds bilaterally. negative: Respiratory distress - Cardiovascular Cardiovascular Exam: Normal rhythm, Normal heart sounds, Systolic murmur, Tachycardia - GI/Abdominal GI/Abdominal exam: Soft, Normal bowel sounds. negative: Tenderness - Rectal Rectal exam: Black stool, Heme (+) stool - exam: Deferred - Extremities Extremities exam: Normal inspection, Full ROM, Normal capillary refill. negative: Tenderness - Back Back exam: Reports: Normal inspection, Full ROM. Denies: Muscle spasm, Rash noted, Tenderness - Neurological Neurological exam: Alert, CN II-XII intact, Normal gait, Oriented X3 - Psychiatric Psychiatric exam: Normal affect, Normal mood - Skin Skin exam: Dry, Intact, Pallor, Warm Course Vital Signs 04/11/17 08:43 Temperature 97.8 F Pulse Rate 114 H Respiratory 18 Rate Blood Pressure 140/66 Pulse Ox 100 - Reevaluation(s) Reevaluation #1: 04/11/17 10:20 d/w dr eisenberg Medical Decision Making - Lab Data Result diagrams: 04/11/17 09:15 04/11/17 09:15 Disposition Disposition: Transfer Clinical Impression: Acute hemolytic anemia GI bleed Qualifiers: GI bleed type/associated pathology: duodenal ulcer Qualified Code(s): K26.4 - Chronic or unspecified duodenal ulcer with hemorrhage Disposition: Home, Self-Care Transfer To: [facility] Reason For Transfer: gi bleed Accepting Physician: dr eisenberg Time Discussed w/Accepting Physician: 10:19 Forms: Patient Portal Access Quality - Quality Measures Quality Measures: N/A - Blood Pressure Screening Does Patient Have Any of the Following: No Blood Pressure Classification: Hypertensive Reading Systolic Measurement: 140 Diastolic Measurement: 66 Screening for High Blood Pressure: < Pre-Hypertensive BP, F/U Documented > [ G8950] Pre-Hypertensive Follow-up Interventions: Follow-up with rescreen every year.
[2017-04-11 09:21] LABS: HEMATOCRIT 20.1 % (35.0-47.0); MEAN CELL VOLUME 93.5 fl (81-97); MEAN CORPUSCULAR HEMOGLOBIN 28.8 pg (27-33); MEAN CORPUSCULAR HGB CONC 30.8 g/dl (32-36); MEAN PLATELET VOLUME 8.9 fl (7.4-10.4); PLATELET COUNT 408 K/uL (130-400); RED BLOOD COUNT 2.15 M/uL (3.80-5.40); RED CELL DISTRIBUTION WIDTH 16.5 % (11.5-14.5); WHITE BLOOD COUNT W/O DIFF 5.7 K/uL (4.2-12.2)
[2017-04-11 09:35] LABS: PARTIAL THROMBOPLASTIN TIME 23.8 SECONDS (24.5-39.1); PROTHROMBIN TIME (PATIENT) 10.8 SECONDS (9.5-12.1)
[2017-04-11 09:36] LABS: BLOOD UREA NITROGEN 47 mg/dL (8-23); CREATININE 1.1 mg/dL (0.5-0.9); EST GLOMERULAR FILTRATION RATE 51 mL/min
[2017-04-11 09:37] LABS: BILIRUBIN,TOTAL < 0.20 mg/dL (0.2-1.0); TOTAL PROTEIN 6.7 g/dL (6.6-8.7)
[2017-04-11 09:39] LABS: GLUCOSE,RANDOM 117 mg/dL (74-109)
[2017-04-11 09:42] LABS: ALB/GLOB RATIO 1.2 (1.1-1.8); ALBUMIN 3.6 g/dL (4.0-5.0); ALKALINE PHOSPHATASE 73 U/L (35-104); ALT/SGPT 7 U/L (<33); AST/SGOT 11 U/L (10.0-35.0)
[2017-04-11 09:44] LABS: HYPOCHROMIA 2+; PLATELET ESTIMATE NORMAL (NORMAL)
[2017-04-11 10:09] LABS: ABO GROUP O; ANTIBODY SCREEN NEGATIVE (NEGATIVE); RH TYPE POSITIVE
[2017-04-11 10:10] LABS: IMMED. SPIN CROSSMATCH COMPATIBLE
[2017-04-11 10:13] LABS: HEMOGLOBIN 6.2 gm/dl (11.6-16.0)
== END 2017-04-11 10:58 | disposition short-term general hospital (02) ==
LOC: ER 08:39
DX: K26.4 Chronic or unspecified duodenal ulcer with hemorrhage (principal); D59.9 Acquired hemolytic anemia, unspecified; R53.1 Weakness; Z85.3 Personal history of malignant neoplasm of breast; Z87.891 Personal history of nicotine dependence
CPT/HCPCS: 99285 ×2; 36430; 85730; 85610; 80053; 85027; 86900; 86901; 86850; P9016

== ENCOUNTER 2018-01-17 17:19 | Inpatient (IN) | payer BC ==
--- NOTE | 2018-01-17 17:43 | Emergency Department Record ---
History of Present Illness - General Chief complaint: Weakness Stated complaint: WEAK,FAINT,SHORT OF BREATH Time Seen by Provider: 01/17/18 17:33 Source: Patient, RN notes reviewed Mode of Arrival: Wheelchair - History of Present Illness Initial comments: patient was brought over from lab with a low hemoglobin of 6.2 and she was Joan jan 05 ,, and and was given 2 units of blood and her discharge hemoglobin was 7.9 and she is going to start her iron therapy but has picked it up. Patient is not having chest pain or difficulty breathing. At [facility] she had an EGD and colonoscopy which were negative and a CT sccan of the abd which was neg and she swallowed a camarea in Mar. Onset/Timin -: Days(s) Location: Generalized Consistency: Constant Improves with: None Worsens with: None Context: Recent illness Associated Symptoms: Denies other symptoms - [place] Coma Scale Eye Response: (4) Open spontaneously Motor Response: (6) Obeys commands Verbal Response: (5) Oriented [place] Total: 15 - Related Data Home Medications Medication Instructions Recorded Confirmed Last Taken Ezetimibe 10 mg PO DAILY 01/17/18 01/17/18 Unknown Allergies Allergy/AdvReac Type Severity Reaction Status Date / Time ibuprofen [From Motrin] Allergy HIVES Verified 04/11/17 09:03 Penicillins Allergy HIVES Verified 04/11/17 09:03 sulfamethoxazole Allergy HIVES Verified 04/11/17 09:03 [From Bactrim] trimethoprim [From Bactrim] Allergy HIVES Verified 04/11/17 09:03 Travel Screening - Travel/Exposure Within Last 30 Days Have you traveled within the last 30 days?: No Review of Systems Reviewed: No additional complaints except as noted below Constitutional: Reports: As per HPI. Denies: Chills, Fever, Malaise, Night sweats, Weakness, Weight change Eyes: Reports: As per HPI. Denies: Eye discharge, Eye pain, Photophobia, Vision change ENT: Reports: As per HPI. Denies: Congestion, Dental pain, Ear pain, Epistaxis , Hearing loss, Throat pain Respiratory: Reports: As per HPI. Denies: Cough, Dyspnea, Hemoptysis, Stridor, Wheezes Cardiovascular: Reports: As per HPI. Denies: Arrhythmia, Chest pain, Dyspnea on exertion, Edema, Murmurs, Orthopnea, Palpitations, Paroxysmal nocturnal dyspnea, Rheumatic Fever, Syncope Endocrine: Reports: As per HPI. Denies: Fatigue, Heat or cold intolerance, Polydipsia, Polyuria Gastrointestinal: Reports: As per HPI. Denies: Abdominal pain, Constipation, Diarrhea, Hematemesis, Hematochezia, Melena, Nausea, Vomiting Genitourinary: Reports: As per HPI. Denies: Abnormal menses, Discharge, Dyspareunia, Dysuria, Frequency, Hematuria, Incontinence, Retention, Urgency Musculoskeletal: Reports: As per HPI. Denies: Arthralgia, Back pain, Gout, Joint swelling, Myalgia, Neck pain Skin: Reports: As per HPI. Denies: Bruising, Change in color, Change in hair/ nails, Lesions, Pruritus, Rash Neurological: Reports: As per HPI. Denies: Abnormal gait, Confusion, Headache, Numbness, Paresthesias, Seizure, Tingling, Tremors, Vertigo, Weakness Psychiatric: Reports: As per HPI. Denies: Anxiety, Auditory hallucinations, Depression, Homicidal thoughts, Suicidal thoughts, Visual hallucinations Hematological/Lymphatic: Reports: As per HPI. Denies: Anemia, Blood Clots, Easy bleeding, Easy bruising, Swollen glands Past Medical History - SOCIAL HISTORY Smoking Status: Former smoker - RESPIRATORY Hx Respiratory Disorders: Yes Hx Asthma: No Hx Bronchitis: No Hx COPD: No Hx Dyspnea: No Hx Pneumonia: Yes (treated recently) Hx Pulmonary Embolism: No Hx Sleep Apnea: No Hx Tuberculosis: No Hx of CPAP: No - CARDIOVASCULAR Hx Cardio Disorders: Yes Comment:: high cholesterol - NEURO Hx Neuro Disorders: Yes Hx Neuropathy: Yes - GI Hx GI Disorders: Yes Hx GI Bleed: Yes - Hx Genitourinary Disorders: Yes Hx Renal Disease: Yes - ENDOCRINE Hx Endocrine Disorders: Yes Hx Thyroid Disease: Yes - MUSCULOSKELETAL Hx Musculoskeletal Disorders: Yes Hx Arthritis: Yes - PSYCH Hx Psych Problems: Yes Hx Anxiety: Yes ("panic attacks") - HEMATOLOGY/ONCOLOGY Hx Hematology/Oncology Disorders: Yes Hx Anemia: Yes Hx Cancer: Yes (Breast cancer) Hx Radiation Therapy: Yes (2002) Hx Blood Transfusions: Yes (At 18yrs old) Hx Blood Transfusion Reaction: No Family Medical History Any Significant Family History?: Yes Family Hx Comment (NOT TO BE USED IN PLACE OF ITEMS BELOW): mother-von wildebrans Hx Cancer: Grandparents Hx Diabetes: Mother *Diabetes Comment: Age 72 at onset Hx Heart Disease: Grandparents Hx Seizures: Brother/Sister *Seizure Comment: Sister has MS and Lupus, some seizures Hx Stroke: Father Physical Exam - General General Appearance: Alert, Oriented x3, Cooperative, No acute distress - Head Head exam: Normal inspection - Eye Eye exam: Normal appearance, PERRL Pupils: Normal accommodation - ENT ENT exam: Normal exam, Mucous membranes moist, Normal external ear exam, Normal orophraynx, TM's normal bilaterally Ear exam: Normal external inspection. negative: External canal tenderness Nasal Exam: Normal inspection. negative: Discharge, Sinus tenderness Mouth exam: Normal external inspection, Tongue normal Teeth exam: Normal inspection. negative: Dental caries Throat exam: Normal inspection. negative: Tonsillar erythema, Tonsillar exudate - Neck Neck exam: Normal inspection, Full ROM. negative: Tenderness - Respiratory Respiratory exam: Normal lung sounds bilaterally. negative: Respiratory distress - Cardiovascular Cardiovascular Exam: Regular rate, Normal rhythm, Normal heart sounds - GI/Abdominal GI/Abdominal exam: Soft, Normal bowel sounds. negative: Tenderness - Rectal Rectal exam: Black stool (hemocccult positive) - exam: Deferred - Extremities Extremities exam: Normal inspection, Full ROM, Normal capillary refill. negative: Tenderness - Back Back exam: Reports: Normal inspection, Full ROM. Denies: Muscle spasm, Rash noted, Tenderness - Neurological Neurological exam: Alert, Normal gait, Oriented X3, Reflexes normal - Psychiatric Psychiatric exam: Normal affect, Normal mood - Skin Skin exam: Dry, Intact, Normal color, Warm Course Vital Signs 01/17/18 17:22 Temperature 97.5 F L Pulse Rate 98 H Respiratory 20 Rate Blood Pressure 139/53 Pulse Ox 100 - Reevaluation(s) Reevaluation #1: Discussed case with Dr. Mcnulty and will admit to Dr. Jack for blood transfusion times two units 01/17/18 18:05 Reevaluation #2: discussed case with Dr. Jack and he agrees to admission and blood transfusion 01/17/18 18:08 Medical Decision Making - Lab Data Result diagrams: 01/17/18 18:00 01/17/18 18:00 Disposition Clinical Impression: Anemia Qualifiers: Anemia type: iron deficiency Iron deficiency anemia type: chronic blood loss Qualified Code(s): D50.0 - Iron deficiency anemia secondary to blood loss ( chronic) GI bleed Qualifiers: GI bleed type/associated pathology: melena Qualified Code(s): K92.1 - Melena Decision to Admit: Admit from ER Condition: (2) Stable Forms: Patient Portal Access Quality - Quality Measures Quality Measures: N/A - Blood Pressure Screening Does Patient Have Any of the Following: No Blood Pressure Classification: Pre-Hypertensive BP Reading Systolic Measurement: 139 Diastolic Measurement: 53 Screening for High Blood Pressure: < Pre-Hypertensive BP, F/U Documented > [ [id number]] Pre-Hypertensive Follow-up Interventions: Referral to alternative/primary care provider.
[2018-01-17 18:08] LABS: BASO % 0.2 % (0-6); EOS % 1.2 % (0-6); LYMPH % 26.9 % (16-45); MEAN CELL VOLUME 91.8 fl (81-97); MEAN CORPUSCULAR HGB CONC 31.7 g/dl (32-36); MEAN PLATELET VOLUME 9.2 fl (7.4-10.4); MONO % 11.7 % (0-9); PLATELET COUNT 474 K/uL (130-400); RED BLOOD COUNT 1.96 M/uL (3.80-5.40); WHITE BLOOD COUNT W/O DIFF 4.9 K/uL (4.2-12.2)
[2018-01-17 18:12] LABS: HEMOGLOBIN 5.7 gm/dl (11.6-16.0)
[2018-01-17 18:21] LABS: CREATININE 1.1 mg/dL (0.5-0.9)
[2018-01-17] MEDS ORDERED: PANTOPRAZOLE SODIUM IV 40 MG VIAL IVP ONE ×2 (18:23→19:11)
--- NOTE | 2018-01-17 18:23 | Emergency Department Record ---
History of Present Illness - General Chief complaint: Weakness Stated complaint: WEAK,FAINT,SHORT OF BREATH Time Seen by Provider: 01/17/18 17:33 Source: Patient, RN notes reviewed Mode of Arrival: Wheelchair - History of Present Illness Onset/Timin -: Days(s) Location: Generalized Consistency: Constant Improves with: None Worsens with: None Context: Recent illness Associated Symptoms: Denies other symptoms - [place] Coma Scale Eye Response: (4) Open spontaneously Motor Response: (6) Obeys commands Verbal Response: (5) Oriented [place] Total: 15 - Related Data Home Medications Medication Instructions Recorded Confirmed Last Taken Ezetimibe 10 mg PO DAILY 01/17/18 01/17/18 Unknown Allergies Allergy/AdvReac Type Severity Reaction Status Date / Time ibuprofen [From Motrin] Allergy HIVES Verified 04/11/17 09:03 Penicillins Allergy HIVES Verified 04/11/17 09:03 sulfamethoxazole Allergy HIVES Verified 04/11/17 09:03 [From Bactrim] trimethoprim [From Bactrim] Allergy HIVES Verified 04/11/17 09:03 Travel Screening - Travel/Exposure Within Last 30 Days Have you traveled within the last 30 days?: No Review of Systems Constitutional: Reports: As per HPI. Denies: Chills, Fever, Malaise, Night sweats, Weakness, Weight change Eyes: Reports: As per HPI. Denies: Eye discharge, Eye pain, Photophobia, Vision change ENT: Reports: As per HPI. Denies: Congestion, Dental pain, Ear pain, Epistaxis , Hearing loss, Throat pain Respiratory: Reports: As per HPI. Denies: Cough, Dyspnea, Hemoptysis, Stridor, Wheezes Cardiovascular: Reports: As per HPI. Denies: Arrhythmia, Chest pain, Dyspnea on exertion, Edema, Murmurs, Orthopnea, Palpitations, Paroxysmal nocturnal dyspnea, Rheumatic Fever, Syncope Endocrine: Reports: As per HPI. Denies: Fatigue, Heat or cold intolerance, Polydipsia, Polyuria Gastrointestinal: Reports: As per HPI. Denies: Abdominal pain, Constipation, Diarrhea, Hematemesis, Hematochezia, Melena, Nausea, Vomiting Genitourinary: Reports: As per HPI. Denies: Abnormal menses, Discharge, Dyspareunia, Dysuria, Frequency, Hematuria, Incontinence, Retention, Urgency Musculoskeletal: Reports: As per HPI. Denies: Arthralgia, Back pain, Gout, Joint swelling, Myalgia, Neck pain Skin: Reports: As per HPI. Denies: Bruising, Change in color, Change in hair/ nails, Lesions, Pruritus, Rash Neurological: Reports: As per HPI. Denies: Abnormal gait, Confusion, Headache, Numbness, Paresthesias, Seizure, Tingling, Tremors, Vertigo, Weakness Psychiatric: Reports: As per HPI. Denies: Anxiety, Auditory hallucinations, Depression, Homicidal thoughts, Suicidal thoughts, Visual hallucinations Hematological/Lymphatic: Reports: As per HPI. Denies: Anemia, Blood Clots, Easy bleeding, Easy bruising, Swollen glands Past Medical History - SOCIAL HISTORY Smoking Status: Former smoker - RESPIRATORY Hx Respiratory Disorders: Yes Hx Asthma: No Hx Bronchitis: No Hx COPD: No Hx Dyspnea: No Hx Pneumonia: Yes (treated recently) Hx Pulmonary Embolism: No Hx Sleep Apnea: No Hx Tuberculosis: No Hx of CPAP: No - CARDIOVASCULAR Hx Cardio Disorders: Yes Comment:: high cholesterol - NEURO Hx Neuro Disorders: Yes Hx Neuropathy: Yes - GI Hx GI Disorders: Yes Hx GI Bleed: Yes - Hx Genitourinary Disorders: Yes Hx Renal Disease: Yes - ENDOCRINE Hx Endocrine Disorders: Yes Hx Thyroid Disease: Yes - MUSCULOSKELETAL Hx Musculoskeletal Disorders: Yes Hx Arthritis: Yes - PSYCH Hx Psych Problems: Yes Hx Anxiety: Yes ("panic attacks") - HEMATOLOGY/ONCOLOGY Hx Hematology/Oncology Disorders: Yes Hx Anemia: Yes Hx Cancer: Yes (Breast cancer) Hx Radiation Therapy: Yes (2002) Hx Blood Transfusions: Yes (At 18yrs old) Hx Blood Transfusion Reaction: No Family Medical History Any Significant Family History?: Yes Family Hx Comment (NOT TO BE USED IN PLACE OF ITEMS BELOW): mother-raquel paulinos Hx Cancer: Grandparents Hx Diabetes: Mother *Diabetes Comment: Age 72 at onset Hx Heart Disease: Grandparents Hx Seizures: Brother/Sister *Seizure Comment: Sister has MS and Lupus, some seizures Hx Stroke: Father Course Vital Signs 01/17/18 17:22 Temperature 97.5 F L Pulse Rate 98 H Respiratory 20 Rate Blood Pressure 139/53 Pulse Ox 100 - Reevaluation(s) Reevaluation #1: Her GI Dr is Dr. Aden and called the GI actionscript developer. 01/17/18 18:23 Medical Decision Making - Lab Data Result diagrams: 01/17/18 18:00 01/17/18 18:00 Lab Results 01/17/18 01/17/18 Range/Units 17:43 18:00 WBC 4.9 (4.2-12.2) K/uL RBC 1.96 L (3.80-5.40) M/uL Hgb 5.7 L* (11.6-16.0) gm/dl Hct 18.0 L (35.0-47.0) % MCV 91.8 (81-97) fl MCH 29.0 (27-33) pg MCHC 31.7 L (32-36) g/dl RDW 16.0 H (11.5-14.5) % Plt Count 474 H (130-400) K/uL MPV 9.2 (7.4-10.4) fl Gran % 60.0 (47-80) % Lymphocytes % 26.9 (16-45) % Monocytes % 11.7 H (0-9) % Eosinophils % 1.2 (0-6) % Basophils % 0.2 (0-6) % Stool Occult Blood Positive H (NEGATIVE) Disposition Clinical Impression: Anemia Qualifiers: Anemia type: iron deficiency Iron deficiency anemia type: chronic blood loss Qualified Code(s): D50.0 - Iron deficiency anemia secondary to blood loss ( chronic) GI bleed Qualifiers: GI bleed type/associated pathology: melena Qualified Code(s): K92.1 - Melena Condition: (2) Stable Forms: Patient Portal Access Quality - Quality Measures Quality Measures: N/A - Blood Pressure Screening Does Patient Have Any of the Following: No, Active Dx of HTN Blood Pressure Classification: Pre-Hypertensive BP Reading Systolic Measurement: 139 Diastolic Measurement: 53 Screening for High Blood Pressure: Patient Exclusion, Hx of HTN [G9744]
[2018-01-17] MEDS ORDERED: PANTOPRAZOLE SODIUM IV 40 MG VIAL IVP SCH (18:30)
[2018-01-17 19:00] LABS: FERRITIN 10.66 ng/mL (13-150)
[2018-01-17 19:01] LABS: THYROID STIMULATING HORMONE 1.38 uIU/mL (0.270-4.20)
[2018-01-17 19:06] LABS: ABO GROUP O
[2018-01-17 19:07] LABS: ANTIBODY SCREEN NEGATIVE (NEGATIVE); RH TYPE POSITIVE
[2018-01-17 19:08] LABS: IMMED. SPIN CROSSMATCH COMPATIBLE
[2018-01-17 19:09] LABS: IMMED. SPIN CROSSMATCH COMPATIBLE
[2018-01-17] MEDS ORDERED: 0.9 % SODIUM CHLORIDE 1000ML 1,000 ML IV PRN (19:11)
[2018-01-18 03:24] LABS: HEMATOCRIT 23.9 % (35.0-47.0); HEMOGLOBIN 7.9 gm/dl (11.6-16.0)
[2018-01-18 04:01] LABS: IMMED. SPIN CROSSMATCH COMPATIBLE
[2018-01-18 08:52] LABS: HEMATOCRIT 29.4 % (35.0-47.0); HEMOGLOBIN 9.6 gm/dl (11.6-16.0)
--- NOTE | 2018-01-18 09:09 | History & Physical ---
History of Present Illness - Date of Service Date of Service for History & Physical: 01/18/18 - History of Present Illness Admitting Diagnosis: anemia. GI bleed History of Present Illness: Mrs. Lee is a 77 y/o female with presentation of weakness and note feeling well over the last few days. The patient has a history of blood loss anemia and and most recently had EGD/Colonoscopy and capsule endoscopy at [facility] within the last 3 weeks. On discharge from the hospital the patient reports a hemoglobin of 8 and she was supposed to start iron infusion therapy but before doing so she began having black tarry stools and became progressively week. She says that she has been having her hemoglobin checked by her primary doctor over the past several days and that there has been a gradual decline. Outpatient labs yesterday revealed a drop in hgb to 5.7 and the patient had fecal occult positive stools. She denies any fevers, chills, abdominal pain, constipation or diarrhea. Vitals on admission BP: BP 153/68 HR: 80 RR: 18 Sats: 98% T: 98.1 PCP: Dr. Mcnulty Travel Screening - Travel/Exposure Within Last 30 Days Have you traveled within the last 30 days?: No - Travel/Exposure Within Last Year Have you traveled outside the [place] in the last year?: No - Additonal Travel Details Have you been exposed to anyone with a communicable illness?: No - Travel Symptoms Symptom Screening: Weakness Review of Systems Constitutional: Reports: As per HPI. Denies: Chills, Fever, Malaise, Night sweats, Weakness, Weight change Eyes: Reports: As per HPI. Denies: Eye discharge, Eye pain, Photophobia, Vision change ENT: Reports: As per HPI. Denies: Congestion, Dental pain, Ear pain, Epistaxis , Hearing loss, Throat pain Respiratory: Reports: As per HPI. Denies: Cough, Dyspnea, Hemoptysis, Stridor, Wheezes Cardiovascular: Reports: As per HPI. Denies: Arrhythmia, Chest pain, Dyspnea on exertion, Edema, Murmurs, Orthopnea, Palpitations, Paroxysmal nocturnal dyspnea, Rheumatic Fever, Syncope Endocrine: Reports: As per HPI. Denies: Fatigue, Heat or cold intolerance, Polydipsia, Polyuria Gastrointestinal: Reports: As per HPI. Denies: Abdominal pain, Constipation, Diarrhea, Hematemesis, Hematochezia, Melena, Nausea, Vomiting Genitourinary: Reports: As per HPI. Denies: Abnormal menses, Discharge, Dyspareunia, Dysuria, Frequency, Hematuria, Incontinence, Retention, Urgency Musculoskeletal: Reports: As per HPI. Denies: Arthralgia, Back pain, Gout, Joint swelling, Myalgia, Neck pain Skin: Reports: As per HPI. Denies: Bruising, Change in color, Change in hair/ nails, Lesions, Pruritus, Rash Neurological: Reports: As per HPI. Denies: Abnormal gait, Confusion, Headache, Numbness, Paresthesias, Seizure, Tingling, Tremors, Vertigo, Weakness Psychiatric: Reports: As per HPI. Denies: Anxiety, Auditory hallucinations, Depression, Homicidal thoughts, Suicidal thoughts, Visual hallucinations Hematological/Lymphatic: Reports: As per HPI. Denies: Anemia, Blood Clots, Easy bleeding, Easy bruising, Swollen glands Past Medical History - SOCIAL HISTORY Smoking Status: Former smoker Drug Use: None - RESPIRATORY Hx Respiratory Disorders: Yes Hx Asthma: No Hx Bronchitis: No Hx COPD: No Hx Dyspnea: No Hx Pneumonia: Yes (treated recently) Hx Pulmonary Embolism: No Hx Sleep Apnea: No Hx Tuberculosis: No Hx of CPAP: No - CARDIOVASCULAR Hx Cardio Disorders: Yes Comment:: high cholesterol - NEURO Hx Neuro Disorders: Yes Hx Neuropathy: Yes - GI Hx GI Disorders: Yes Hx GI Bleed: Yes - Hx Genitourinary Disorders: Yes Hx Renal Disease: Yes - ENDOCRINE Hx Endocrine Disorders: Yes Hx Thyroid Disease: Yes - MUSCULOSKELETAL Hx Musculoskeletal Disorders: Yes Hx Arthritis: Yes - PSYCH Hx Psych Problems: Yes Hx Anxiety: Yes ("panic attacks") - HEMATOLOGY/ONCOLOGY Hx Hematology/Oncology Disorders: Yes Hx Anemia: Yes Hx Cancer: Yes (Breast cancer) Hx Radiation Therapy: Yes (2002) Hx Blood Transfusions: Yes (At 18yrs old) Hx Blood Transfusion Reaction: No Family Medical History Any Significant Family History?: Yes Family Hx Comment (NOT TO BE USED IN PLACE OF ITEMS BELOW): mother-von wildebrans Hx Cancer: Grandparents Hx Diabetes: Mother *Diabetes Comment: Age 72 at onset Hx Heart Disease: Grandparents Hx Seizures: Brother/Sister *Seizure Comment: Sister has MS and Lupus, some seizures Hx Stroke: Father H&P Meds/Allergies - Allergies Allergies: Allergies Allergy/AdvReac Type Severity Reaction Status Date / Time ibuprofen [From Motrin] Allergy HIVES Verified 04/11/17 09:03 Penicillins Allergy HIVES Verified 04/11/17 09:03 sulfamethoxazole Allergy HIVES Verified 04/11/17 09:03 [From Bactrim] trimethoprim [From Bactrim] Allergy HIVES Verified 04/11/17 09:03 - Home Medications Home Medications Medication Instructions Recorded Confirmed Last Taken Ezetimibe 10 mg PO DAILY 01/17/18 01/17/18 Unknown - Active Medications Active Medications: Current Medications Sodium Chloride () 1,000 mls @ 15 mls/hr IV .Q24H PRN PRN Reason: LARGE VOLUME IV Physical Exam - Vital Signs Vital Signs: Vital Signs - Last 24 Hrs Temp Pulse Pulse Resp BP BP Pulse Ox 01/18/18 07:01 97.9 F 77 18 153/68 98 01/18/18 02:30 98.1 F 80 20 145/67 97 01/17/18 22:00 97.7 F 86 18 137/60 98 01/17/18 21:00 86 18 01/17/18 19:19 97.9 F 94 H 170/67 97 01/17/18 18:40 88 18 142/76 99 01/17/18 17:22 97.5 F L 98 H 20 139/53 100 - General General Appearance: Alert, Oriented x3, Cooperative, No acute distress - Head Head exam: Normal inspection - Eye Eye exam: Normal appearance, PERRL Pupils: Normal accommodation - ENT ENT exam: Normal exam, Mucous membranes moist, Normal external ear exam, Normal orophraynx, TM's normal bilaterally Ear exam: Normal external inspection. negative: External canal tenderness Nasal Exam: Normal inspection. negative: Discharge, Sinus tenderness Mouth exam: Normal external inspection, Tongue normal Teeth exam: Normal inspection. negative: Dental caries Throat exam: Normal inspection. negative: Tonsillar erythema, Tonsillar exudate - Neck Neck exam: Normal inspection, Full ROM. negative: Tenderness - Respiratory Respiratory exam: Normal lung sounds bilaterally. negative: Respiratory distress - Cardiovascular Cardiovascular Exam: Regular rate, Normal rhythm, Normal heart sounds - GI/Abdominal GI/Abdominal exam: Soft, Normal bowel sounds. negative: Tenderness - Rectal Rectal exam: Black stool (hemocccult positive) - exam: Deferred - Extremities Extremities exam: Normal inspection, Full ROM, Normal capillary refill. negative: Tenderness - Back Back exam: Reports: Normal inspection, Full ROM. Denies: Muscle spasm, Rash noted, Tenderness - Neurological Neurological exam: Alert, Normal gait, Oriented X3, Reflexes normal - Psychiatric Psychiatric exam: Normal affect, Normal mood - Skin Skin exam: Dry, Intact, Normal color, Warm Results - Labs Result Diagrams: 01/18/18 08:45 01/17/18 18:00 Labs Last 24 Hours: Laboratory Results - last 24 hr 01/17/18 01/17/18 01/17/18 17:25 17:25 17:43 WBC RBC Hgb Hct MCV MCH MCHC RDW Plt Count MPV Gran % Lymphocytes % Monocytes % Eosinophils % Basophils % Sodium Potassium Chloride Carbon Dioxide Anion Gap BUN Creatinine Estimated GFR Random Glucose Calcium Iron TIBC % Saturation Ferritin Vitamin B12 Folate TSH Stool Occult Blood Positive H ABO Group Rh Factor Antibody Screen Crossmatch Yes Yes 01/17/18 01/17/18 01/17/18 18:00 18:00 18:00 WBC 4.9 RBC 1.96 L Hgb 5.7 L* Hct 18.0 L MCV 91.8 MCH 29.0 MCHC 31.7 L RDW 16.0 H Plt Count 474 H MPV 9.2 Gran % 60.0 Lymphocytes % 26.9 Monocytes % 11.7 H Eosinophils % 1.2 Basophils % 0.2 Sodium 132 L Potassium 4.3 Chloride 99 Carbon Dioxide 22.0 Anion Gap 11.0 BUN 28 H Creatinine 1.1 H Estimated GFR 51 Random Glucose 98 Calcium 8.7 L Iron TIBC % Saturation Ferritin Vitamin B12 Folate TSH Stool Occult Blood ABO Group O Rh Factor Positive Antibody Screen Negative Crossmatch 01/17/18 01/18/18 01/18/18 18:00 03:20 03:28 WBC RBC Hgb 7.9 L Hct 23.9 L MCV MCH MCHC RDW Plt Count MPV Gran % Lymphocytes % Monocytes % Eosinophils % Basophils % Sodium Potassium Chloride Carbon Dioxide Anion Gap BUN Creatinine Estimated GFR Random Glucose Calcium Iron 17 L TIBC 318 % Saturation 5 L Ferritin 10.66 L Vitamin B12 258.2 Folate 10.17 TSH 1.38 Stool Occult Blood ABO Group Rh Factor Antibody Screen Crossmatch Yes 01/18/18 08:45 WBC RBC Hgb 9.6 L Hct 29.4 L MCV MCH MCHC RDW Plt Count MPV Gran % Lymphocytes % Monocytes % Eosinophils % Basophils % Sodium Potassium Chloride Carbon Dioxide Anion Gap BUN Creatinine Estimated GFR Random Glucose Calcium Iron TIBC % Saturation Ferritin Vitamin B12 Folate TSH Stool Occult Blood ABO Group Rh Factor Antibody Screen Crossmatch VTE H&P Assessment - Risk for VTE Risk for VTE: No Risk Level: Very Low Risk Assessment Date: 01/18/18 Risk Assessment Time: 10:44 VTE Orders Placed or Will Be Placed: No VTE Reason for No Prophylaxis: Contraindicated (active GI bleed ) Plan - Inpatient Certification Inpatient Certification: Admit to inpatient care: Based on my medical assessment, after consideration of patient's risk factors (age, co-morbidities and patient presenting symptoms and acuity), I expect that this patient will remain in the hospital greater than or equal to two midnights and that the services needed warrant inpatient care because: Patient Risk Factors: [] Estimated length of stay: [] The patient may reasonably be expected to be discharged or transferred to a hospital within 96 hours after admission to [facility]. Services needed: [] Post hospital care (if known): [] I certify that my determination is in accordance with my understanding of Medicare requirements for reasonable and necessary inpatient services. - Detailed Diagnosis and Plan (1) GI bleed Current Visit: Yes Status: Acute Qualifiers: GI bleed type/associated pathology: melena Qualified Code(s): K92.1 - Melena Base Code: K92.2 - GASTROINTESTINAL HEMORRHAGE, UNSPECIFIED Comment: : - melanotic stools over the past 2-3 days. - hgb 5.7 --> 9.6 after 3 liters PRBC. - recent EGD/Colonoscopy and capsule endoscopy at [facility] no active site of bleeding identified. 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 - may want to consider estradiol therapy at discharge. (2) Blood loss anemia Current Visit: Yes Status: Acute Base Code: D50.0 - IRON DEFICIENCY ANEMIA SECONDARY TO BLOOD LOSS (CHRONIC) Comment: 01/18/18: - Hgb 5.7 --> 9.6, Ferritin 10.6, Fe 17 - Fecal occult blood test positive. - s/p 3 liters IV blood infusion. - recent EGD/Colonoscopy and capsule endoscopy. (3) HTN (hypertension) Current Visit: Yes Status: Acute Base Code: I10 - ESSENTIAL (PRIMARY) HYPERTENSION Comment: 01/18/18: - resume home dose of Lisinopril 5mg daily. (4) HLD (hyperlipidemia) Current Visit: Yes Status: Acute Base Code: E78.5 - HYPERLIPIDEMIA, UNSPECIFIED Comment: 01/18/18: - resume Zetia 10mg daily. (5) GERD (gastroesophageal reflux disease) Current Visit: Yes Status: Acute Base Code: K21.9 - GASTRO-ESOPHAGEAL REFLUX DISEASE WITHOUT ESOPHAGITIS (6) DVT prophylaxis Current Visit: Yes Status: Acute Base Code: ATI0245 - Comment: 01/18/18: - not a candidate for prophylaxis due to GI bleed. (7) Full code status Current Visit: Yes Status: Acute Base Code: Z78.9 - OTHER SPECIFIED HEALTH STATUS Comment: 01/18/18: - Full code status.
[2018-01-18] MEDS ORDERED: PANTOPRAZOLE SODIUM 40 MG TABLET PO ONE (10:39)
[2018-01-18] MEDS ORDERED: EZETIMIBE 10 MG TABLET PO SCH (10:45)
--- NOTE | 2018-01-18 12:25 | Discharge Summary ---
Providers Discharge Summary Date: 01/18/18 Date of admission: 01/17/18 19:06 Attending physician: FLAVIA IVEY Primary care physician: JACOB AUSTIN D.O. Physical Exam - Vital Signs Vital Signs: Vital Signs - Last 24 Hrs Temp Pulse Pulse Pulse Resp BP BP 01/18/18 10:00 99 F 80 18 169/79 01/18/18 09:00 77 18 01/18/18 07:01 97.9 F 77 18 153/68 01/18/18 02:30 98.1 F 80 20 145/67 01/17/18 22:00 97.7 F 86 18 137/60 01/17/18 21:00 86 18 01/17/18 19:19 97.9 F 94 H 170/67 01/17/18 18:40 88 18 142/76 01/17/18 17:22 97.5 F L 98 H 20 139/53 Pulse Ox 01/18/18 10:00 97 01/18/18 09:00 01/18/18 07:01 98 01/18/18 02:30 97 01/17/18 22:00 98 01/17/18 21:00 01/17/18 19:19 97 01/17/18 18:40 99 01/17/18 17:22 100 - General General Appearance: Alert, Oriented x3, Cooperative, No acute distress - Head Head exam: Normal inspection - Eye Eye exam: Normal appearance, PERRL Pupils: Normal accommodation - ENT ENT exam: Normal exam, Mucous membranes moist, Normal external ear exam, Normal orophraynx, TM's normal bilaterally Ear exam: Normal external inspection. negative: External canal tenderness Nasal Exam: Normal inspection. negative: Discharge, Sinus tenderness Mouth exam: Normal external inspection, Tongue normal Teeth exam: Normal inspection. negative: Dental caries Throat exam: Normal inspection. negative: Tonsillar erythema, Tonsillar exudate - Neck Neck exam: Normal inspection, Full ROM. negative: Tenderness - Respiratory Respiratory exam: Normal lung sounds bilaterally. negative: Respiratory distress - Cardiovascular Cardiovascular Exam: Regular rate, Normal rhythm, Normal heart sounds - GI/Abdominal GI/Abdominal exam: Soft, Normal bowel sounds. negative: Tenderness - Rectal Rectal exam: Black stool (hemocccult positive) - exam: Deferred - Extremities Extremities exam: Normal inspection, Full ROM, Normal capillary refill. negative: Tenderness - Back Back exam: Reports: Normal inspection, Full ROM. Denies: Muscle spasm, Rash noted, Tenderness - Neurological Neurological exam: Alert, Normal gait, Oriented X3, Reflexes normal - Psychiatric Psychiatric exam: Normal affect, Normal mood - Skin Skin exam: Dry, Intact, Normal color, Warm Hospitalization - Hospitalization Admission Diagnosis: anemia. GI bleed - Problem List/Discharge Diagnosis (1) GI bleed Current Visit: Yes Status: Acute Discharge Diagnosis: GI bleed type/associated pathology: melena Qualified Code(s): K92.1 - Melena Base Code: K92.2 - GASTROINTESTINAL HEMORRHAGE, UNSPECIFIED Comment: : - melanotic stools over the past 2-3 days. - hgb 5.7 --> 9.6 after 3 liters PRBC. - recent EGD/Colonoscopy and capsule endoscopy at [facility] no active site of bleeding identified. 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 - may want to consider estradiol therapy at discharge. (2) Blood loss anemia Current Visit: Yes Status: Acute Base Code: D50.0 - IRON DEFICIENCY ANEMIA SECONDARY TO BLOOD LOSS (CHRONIC) Comment: 01/18/18: - Hgb 5.7 --> 9.6, Ferritin 10.6, Fe 17 - Fecal occult blood test positive. - s/p 3 liters IV blood infusion. - recent EGD/Colonoscopy and capsule endoscopy. (3) HTN (hypertension) Current Visit: Yes Status: Acute Base Code: I10 - ESSENTIAL (PRIMARY) HYPERTENSION Comment: 01/18/18: - resume home dose of Lisinopril 5mg daily. (4) HLD (hyperlipidemia) Current Visit: Yes Status: Acute Base Code: E78.5 - HYPERLIPIDEMIA, UNSPECIFIED Comment: 01/18/18: - resume Zetia 10mg daily. (5) GERD (gastroesophageal reflux disease) Current Visit: Yes Status: Acute Base Code: K21.9 - GASTRO-ESOPHAGEAL REFLUX DISEASE WITHOUT ESOPHAGITIS (6) DVT prophylaxis Current Visit: Yes Status: Acute Base Code: [id number] - Comment: 01/18/18: - not a candidate for prophylaxis due to GI bleed. (7) Full code status Current Visit: Yes Status: Acute Base Code: Z78.9 - OTHER SPECIFIED HEALTH STATUS Comment: 01/18/18: - Full code status. - Hospitalization Course Hospital Course: Mrs. Lee is a 77 y/o female with presentation of weakness and note feeling well over the last few days. The patient has a history of blood loss anemia and and most recently had EGD/Colonoscopy and capsule endoscopy at [facility] within the last 3 weeks. On discharge from the hospital the patient reports a hemoglobin of 8 and she was supposed to start iron infusion therapy but before doing so she began having black tarry stools and became progressively week. She says that she has been having her hemoglobin checked by her primary doctor over the past several days and that there has been a gradual decline. Outpatient labs yesterday revealed a drop in hgb to 5.7 and the patient had fecal occult positive stools. She denies any fevers, chills, abdominal pain, constipation or diarrhea. Vitals on admission BP: BP 153/68 HR: 80 RR: 18 Sats: 98% T: 98.1 PCP: Dr. Austin Abnormal Labs: Abnormal Lab Results 01/17/18 01/17/18 01/17/18 Range/Units 17:43 18:00 18:00 RBC 1.96 L (3.80-5.40) M/uL Hgb 5.7 L* (11.6-16.0) gm/dl Hct 18.0 L (35.0-47.0) % MCHC 31.7 L (32-36) g/dl RDW 16.0 H (11.5-14.5) % Plt Count 474 H (130-400) K/uL Monocytes % 11.7 H (0-9) % Sodium 132 L (136-145) mmol/L BUN 28 H (8-23) mg/dL Creatinine 1.1 H (0.5-0.9) mg/dL Calcium 8.7 L (8.8-10.2) mg/dL Iron (37-145) ug/dL % Saturation (20-50) % Ferritin (13-150) ng/mL Stool Occult Blood Positive H (NEGATIVE) 01/17/18 01/18/18 01/18/18 Range/Units 18:00 03:20 08:45 RBC (3.80-5.40) M/uL Hgb 7.9 L 9.6 L (11.6-16.0) gm/dl Hct 23.9 L 29.4 L (35.0-47.0) % MCHC (32-36) g/dl RDW (11.5-14.5) % Plt Count (130-400) K/uL Monocytes % (0-9) % Sodium (136-145) mmol/L BUN (8-23) mg/dL Creatinine (0.5-0.9) mg/dL Calcium (8.8-10.2) mg/dL Iron 17 L (37-145) ug/dL % Saturation 5 L (20-50) % Ferritin 10.66 L (13-150) ng/mL Stool Occult Blood (NEGATIVE) Condition at Discharge: (2) Stable Discharge Medications - Discharge Medications Home Medications: Ambulatory Orders Epinephrine [Epipen] 0.3 mg IJ ASDIR PRN 07/20/13 [Last Taken 1 Day Ago ~] Lisinopril [Zestril] 5 mg PO QHS 09/27/16 [Last Taken 1 Day Ago ~03/24/17] Pantoprazole Sodium [Protonix] 40 mg PO BID 04/11/17 [Last Taken Unknown] Ezetimibe 10 mg PO DAILY 01/17/18 [Last Taken Unknown] Ezetimibe [Zetia] 10 mg PO DAILY tablet 01/18/18 [Last Taken Unknown] Discharge Plan - Discharge Instructions Activity at Discharge: Resume Usual Activities As Tolerated Diet at Discharge: Advance to Usual Diet Additional Instructions: Please follow up with Dr. Austin early next week regarding your iron infusion therapy. Have your labs drawn in 3 days and if you notice more dark stools or bright red blood please return to the ED. Quality Measures - Quality Measures Quality Measures: Advance Directives, Documentation of Current Medications in Medical Record, Elder Maltreatment Screen and Follow-Up Plan, Screening for High Blood Pressure and F/U Documented - Current Medications Quality Measure: Measure #130: Documentation of Current Medications Documentation of Current Medications: <Current Medications Documented/Reviewed> [[id number]] - Blood Pressure Screening Quality Measure: Screening for High Blood Pressure and Follow-Up Documented Does Patient Have Any of the Following: Active Dx of HTN Blood Pressure Classification: Pre-Hypertensive BP Reading Systolic Measurement: 139 Diastolic Measurement: 53 Screening for High Blood Pressure: Patient Exclusion, Hx of HTN [[id number]] - Advance Directives Quality Measure: Measure #47: Care Plan Advance Directives Established: No Advance Directives Information Provided To Patient: Declined Advance Directives on File: No Living Will: No 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: Yes 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 Name: Chava Rosenberg Advance Care Planning: <Care Plan/Decision Maker Not Decided; Discussed & Documented> [[id number]] - Elder Abuse Suspicion Index Screening: Elder Abuse Suspicion Index Screening Rely on people for bathing, dressing, shopping, banking, etc: Yes Prevented from getting food, clothes, medication, etc: No Made to feel shamed or threatened by someone: No Forced to sign papers or use money against will: No Feel afraid, touched in ways not wanted or hurt physically: No Poor eye contact, withdrawn, malnourished, cuts or bruises: No Screening Result: Negative result EASI Reference Information: Savanna BARBER, Richardson C, Celina D, Neeru [place].Development and validation of a tool to assist physicians identification of elder abuse: The Elder Abuse Suspicion Index (EASI ). Journal of Elder Abuse and Neglect, 2008; 20 (3): 276-300. - Elder Maltreatment Screen Quality Measures: Elder Maltreatment Screen and Follow-Up Plan Elder Maltreatment Screen: <Negative, No Follow-Up Plan Required> [G0310]
[2018-01-18] MEDS ORDERED: LISINOPRIL 5 MG TABLET PO SCH (12:30)
== END 2018-01-18 13:28 | disposition home or self-care (01) | DRG 812 ==
LOC: ER 17:19 → MEDSURG 19:06
PROVIDERS: ADMIT Internal Medicine; ATTEND Internal Medicine
DX: D64.9 Anemia, unspecified (principal); K92.2 Gastrointestinal hemorrhage, unspecified; K92.1 Melena; D50.0 Iron deficiency anemia secondary to blood loss (chronic); R06.02 Shortness of breath; E78.00 Pure hypercholesterolemia, unspecified; E03.9 Hypothyroidism, unspecified; N28.9 Disorder of kidney and ureter, unspecified; G62.9 Polyneuropathy, unspecified; M19.90 Unspecified osteoarthritis, unspecified site; F41.0 Panic disorder [episodic paroxysmal anxiety]; Z85.3 Personal history of malignant neoplasm of breast; Z96.659 Presence of unspecified artificial knee joint
CPT/HCPCS: 36430; 80048; 82272; 82607; 82728; 82746; 83550; 84443; 85014; 85018; 85025; 86850; 86900; 86901; 96374; 99223; 99285; C9113

== ENCOUNTER 2018-02-09 15:02 | Emergency (ER) | payer BC ==
[2018-02-09] MEDS ORDERED: 0.9 % SODIUM CHLORIDE 1,000 ML BAG IV ONE (15:28)
--- NOTE | 2018-02-09 15:32 | Emergency Department Record ---
History of Present Illness - General Chief complaint: Fatigue and Weakness Stated complaint: FEELS LIKE SHE WILL PASS OUT Time Seen by Provider: 02/09/18 15:20 Source: Patient Mode of Arrival: Ambulatory Limitations: No limitations - History of Present Illness Initial comments: The patient is here due to feeling weak for one day. She was prepped for a capsule endoscopy for yesterday but was not able to get the pill down. She now feels she may have dehydrated herself due to the prep. The patient does have a hx of frequent GI bleeds and was in the hospital for it 3 weeks ago when she received 3 units of blood. Presently she denies any black or bloody stools and states she has not had any stool for 24 hours due to the prep. There has been no fever, chills, CP, SOB, nausea, vomiting, or diarrhea. MD Complaint: Generalized weakness Onset/Timin -: Days(s) Location: Generalized Associated Symptoms: Other - Walker Coma Scale Eye Response: (4) Open spontaneously Motor Response: (6) Obeys commands Verbal Response: (5) Oriented Loyda Total: 15 - Related Data Previous Rx's Medication Instructions Recorded Ezetimibe [Zetia] 10 mg PO DAILY tablet 01/18/18 Allergies Allergy/AdvReac Type Severity Reaction Status Date / Time ibuprofen [From Motrin] Allergy HIVES Verified 02/09/18 15:18 Penicillins Allergy HIVES Verified 02/09/18 15:18 sulfamethoxazole Allergy HIVES Verified 02/09/18 15:18 [From Bactrim] trimethoprim [From Bactrim] Allergy HIVES Verified 02/09/18 15:18 Travel Screening - Travel/Exposure Within Last 30 Days Have you traveled within the last 30 days?: No - Travel/Exposure Within Last Year Have you traveled outside the [place] in the last year?: No - Additonal Travel Details Have you been exposed to anyone with a communicable illness?: No - Travel Symptoms Symptom Screening: None Review of Systems Constitutional: Denies: Chills, Fever Eyes: Denies: Eye discharge ENT: Denies: Congestion Respiratory: Denies: Cough, Dyspnea Cardiovascular: Denies: Chest pain Endocrine: Reports: Fatigue Gastrointestinal: Denies: Abdominal pain, Nausea Genitourinary: Denies: Dysuria Musculoskeletal: Denies: Back pain Skin: Denies: Bruising Past Medical History - SOCIAL HISTORY Smoking Status: Light tobacco smoker (<10/day) Alcohol Use: None Drug Use: None - RESPIRATORY Hx Respiratory Disorders: Yes Hx Asthma: No Hx Bronchitis: No Hx COPD: No Hx Dyspnea: No Hx Pneumonia: Yes (treated recently) Hx Pulmonary Embolism: No Hx Sleep Apnea: No Hx Tuberculosis: No Hx of CPAP: No - CARDIOVASCULAR Hx Cardio Disorders: Yes Comment:: high cholesterol - NEURO Hx Neuro Disorders: Yes Hx Neuropathy: Yes - GI Hx GI Disorders: Yes Hx GI Bleed: Yes - Hx Genitourinary Disorders: Yes Hx Renal Disease: Yes - ENDOCRINE Hx Endocrine Disorders: Yes Hx Thyroid Disease: Yes - MUSCULOSKELETAL Hx Musculoskeletal Disorders: Yes Hx Arthritis: Yes - PSYCH Hx Psych Problems: Yes Hx Anxiety: Yes ("panic attacks") - HEMATOLOGY/ONCOLOGY Hx Hematology/Oncology Disorders: Yes Hx Anemia: Yes Hx Cancer: Yes (Breast cancer) Hx Radiation Therapy: Yes (2002) Hx Blood Transfusions: Yes (At 18yrs old) Hx Blood Transfusion Reaction: No Family Medical History Any Significant Family History?: No Family Hx Comment (NOT TO BE USED IN PLACE OF ITEMS BELOW): mother-von wildebrans Hx Cancer: Grandparents Hx Diabetes: Mother *Diabetes Comment: Age 72 at onset Hx Heart Disease: Grandparents Hx Seizures: Brother/Sister *Seizure Comment: Sister has MS and Lupus, some seizures Hx Stroke: Father Physical Exam - General General Appearance: Alert, Oriented x3, Cooperative, No acute distress - Head Head exam: Atraumatic, Normocephalic, Normal inspection - Eye Eye exam: Normal appearance, PERRL, EOMI - ENT Throat exam: Normal inspection. negative: Tonsillar erythema, Tonsillar exudate - Neck Neck exam: Normal inspection, Full ROM. negative: Tenderness - Respiratory Respiratory exam: Normal lung sounds bilaterally. negative: Respiratory distress - Cardiovascular Cardiovascular Exam: Regular rate, Normal rhythm, Normal heart sounds - GI/Abdominal GI/Abdominal exam: Soft, Normal bowel sounds. negative: Tenderness - Extremities Extremities exam: Normal inspection, Full ROM, Normal capillary refill. negative: Tenderness - Neurological Neurological exam: Alert. negative: Motor sensory deficit Course Vital Signs 02/09/18 15:10 Temperature 97.7 F Pulse Rate 91 H Respiratory 16 Rate Blood Pressure 178/85 Pulse Ox 100 - Reevaluation(s) Reevaluation #1: The patient is doing very well at this time. She denies any pain or lightheadedness. I did discuss the HGB of 8.7 which has been her norm recently. 02/09/18 16:25 Reevaluation #2: The patient is feeling a lot better at this time. She is resting comfortably with no new complaints. She no longer is feeling weak and dizzy and feels she may have just been dehydrated. There has been no reported melena or rectal bleeding and her Hgb has been stable at 8.7. 02/09/18 17:01 Medical Decision Making - Data Complexity MDM Data: Labs Ordered and/or Reviewed, EKG Ordered and/or Reviewed - Lab Data Result diagrams: 02/09/18 15:35 02/09/18 15:35 - EKG Data -: EKG Interpreted by Me EKG: No Acute Changes, Normal EKG (prob LVH.) Disposition Disposition: Discharge Clinical Impression: Weakness Disposition: Home, Self-Care Condition: (2) Stable Instructions: Fatigue (ED) Additional Instructions: Please continue your regular medicines and please return to the ER for any worsening symptoms or any signs of bleeding. Forms: Patient Portal Access Time of Disposition: 17:03 Quality - Quality Measures Quality Measures: N/A - Blood Pressure Screening View Details: Yes Does Patient Have Any of the Following: No Blood Pressure Classification: Pre-Hypertensive BP Reading Systolic Measurement: 178 Diastolic Measurement: 85 Screening for High Blood Pressure: < Pre-Hypertensive BP, F/U Documented > [ [id number]] Pre-Hypertensive Follow-up Interventions: Referral to alternative/primary care provider.
[2018-02-09 15:45] LABS: BASO % 0.2 % (0-6); EOS % 0.8 % (0-6); GRAN % 64.3 % (47-80); HEMATOCRIT 27.5 % (35.0-47.0); HEMOGLOBIN 8.7 gm/dl (11.6-16.0); LYMPH % 24.4 % (16-45); MEAN CELL VOLUME 90.8 fl (81-97); MEAN CORPUSCULAR HEMOGLOBIN 28.7 pg (27-33); MEAN CORPUSCULAR HGB CONC 31.6 g/dl (32-36); MEAN PLATELET VOLUME 9.1 fl (7.4-10.4); MONO % 10.3 % (0-9); PLATELET COUNT 466 K/uL (130-400); RED BLOOD COUNT 3.03 M/uL (3.80-5.40); RED CELL DISTRIBUTION WIDTH 15.4 % (11.5-14.5); WHITE BLOOD COUNT W/O DIFF 5.2 K/uL (4.2-12.2)
[2018-02-09 15:53] LABS: BILIRUBIN,TOTAL 0.2 mg/dL (0.2-1.0); CREATININE 1.4 mg/dL (0.5-0.9)
[2018-02-09 15:54] LABS: TOTAL PROTEIN 7.1 g/dL (6.6-8.7)
[2018-02-09 15:57] LABS: PARTIAL THROMBOPLASTIN TIME 27.3 SECONDS (24.5-39.1); PROTHROMBIN TIME (PATIENT) 10.3 SECONDS (9.5-12.1)
[2018-02-09 15:59] LABS: ALB/GLOB RATIO 1.4 (1.1-1.8); ALBUMIN 4.1 g/dL (4.0-5.0)
== END 2018-02-09 17:14 | disposition home or self-care (01) ==
LOC: ER 15:02
DX: R53.81 Other malaise (principal); R42 Dizziness and giddiness; F17.210 Nicotine dependence, cigarettes, uncomplicated; Z85.3 Personal history of malignant neoplasm of breast
CPT/HCPCS: 80053; 84484; 85025; 85610; 85730; 93005; 93010; 96360; 96361; 99284; J7030

== ENCOUNTER 2018-03-23 04:17 | Emergency (ER) | payer BC ==
--- NOTE | 2018-03-23 04:24 | Emergency Department Record ---
History of Present Illness - General Stated complaint: SWOLLEN TOUNGE Time Seen by Provider: 03/23/18 04:18 Source: Patient, Family Mode of Arrival: Ambulatory Limitations: No limitations - History of Present Illness Initial comments: 77 yo female presents with a concern about tongue swelling. The onset was just before arrival. No history of the same. The son noted she was difficult to understand speaking. She is on an MARGARITA Inhibitor. No other hives, cough, gagging, swelling, syncope. MD complaint: Other (Tongue swelling) -: Hour(s) Location: Tongue Severity: Moderate Quality: Other Consistency: Other Improves with: Swallowing Worsens with: Other Associated Symptoms: Other - Related Data Previous Rx's Medication Instructions Recorded Ezetimibe [Zetia] 10 mg PO DAILY tablet 01/18/18 Allergies Allergy/AdvReac Type Severity Reaction Status Date / Time ibuprofen [From Motrin] Allergy HIVES Verified 02/09/18 15:18 Penicillins Allergy HIVES Verified 02/09/18 15:18 sulfamethoxazole Allergy HIVES Verified 02/09/18 15:18 [From Bactrim] trimethoprim [From Bactrim] Allergy HIVES Verified 02/09/18 15:18 Review of Systems Constitutional: Denies: Chills, Fever, Malaise, Weakness Eyes: Denies: Eye discharge ENT: Reports: Other (tongue swelling). Denies: Congestion, Dental pain, Ear pain, Hearing loss, Throat pain Respiratory: Denies: Cough, Dyspnea, Hemoptysis, Stridor Cardiovascular: Denies: Chest pain, Edema Endocrine: Denies: Fatigue Gastrointestinal: Denies: Abdominal pain, Diarrhea, Nausea, Vomiting Genitourinary: Denies: Dysuria Musculoskeletal: Denies: Arthralgia, Myalgia Skin: Denies: Bruising, Change in color, Rash Neurological: Denies: Headache Psychiatric: Denies: Anxiety Hematological/Lymphatic: Denies: Easy bleeding, Easy bruising Past Medical History - SOCIAL HISTORY Smoking Status: Light tobacco smoker (<10/day) Drug Use: None - RESPIRATORY Hx Respiratory Disorders: Yes Hx Asthma: No Hx Bronchitis: No Hx COPD: No Hx Dyspnea: No Hx Pneumonia: Yes (treated recently) Hx Pulmonary Embolism: No Hx Sleep Apnea: No Hx Tuberculosis: No Hx of CPAP: No - CARDIOVASCULAR Hx Cardio Disorders: Yes Comment:: high cholesterol - NEURO Hx Neuro Disorders: Yes Hx Neuropathy: Yes - GI Hx GI Disorders: Yes Hx GI Bleed: Yes - Hx Genitourinary Disorders: Yes Hx Renal Disease: Yes - ENDOCRINE Hx Endocrine Disorders: Yes Hx Thyroid Disease: Yes - MUSCULOSKELETAL Hx Musculoskeletal Disorders: Yes Hx Arthritis: Yes - PSYCH Hx Psych Problems: Yes Hx Anxiety: Yes ("panic attacks") - HEMATOLOGY/ONCOLOGY Hx Hematology/Oncology Disorders: Yes Hx Anemia: Yes Hx Cancer: Yes (Breast cancer) Hx Radiation Therapy: Yes (2002) Hx Blood Transfusions: Yes (At 18yrs old) Hx Blood Transfusion Reaction: No Family Medical History Family Hx Comment (NOT TO BE USED IN PLACE OF ITEMS BELOW): mother-raquel lo Hx Cancer: Grandparents Hx Diabetes: Mother *Diabetes Comment: Age 72 at onset Hx Heart Disease: Grandparents Hx Seizures: Brother/Sister *Seizure Comment: Sister has MS and Lupus, some seizures Hx Stroke: Father Physical Exam - General General Appearance: Alert, Oriented x3, Cooperative, No acute distress Limitations: No limitations - Head Head exam: Atraumatic, Normal inspection - Eye Eye exam: Normal appearance. negative: Conjunctival injection - ENT ENT exam: Normal exam, Mucous membranes moist. negative: Mucous membranes dry Ear exam: Normal external inspection Nasal Exam: Normal inspection Mouth exam: Other (mild dysarthria). negative: Drooling, Tongue normal (see image of mouth below) Throat exam: Normal inspection. negative: Tonsillar erythema, Tonsillomegaly, Tonsillar exudate, R peritonsillar mass, L peritonsillar mass Image of Mouth/Teeth: 1 - asymentric left side tongue swelling, lips normal, posterior pharynx patent - Neck Neck exam: Normal inspection. negative: Tenderness - Respiratory Respiratory exam: Normal lung sounds bilaterally. negative: Accessory muscle use, Chest wall tenderness, Decreased breath sounds, Prolonged expiratory, Respiratory distress, Rhonchi, Stridor, Wheezes - Cardiovascular Cardiovascular Exam: Regular rate, Normal rhythm, Normal heart sounds - Neurological Neurological exam: Alert, Normal gait, Oriented X3 - Psychiatric Psychiatric exam: Normal affect, Normal mood - Skin Skin exam: Dry, Intact, Normal color, Warm Course - Reevaluation(s) Reevaluation #1: 03/23/18 04:24 On arrival the patient immediately walked herself to the restroom. Waiting to evaluate. 03/23/18 04:29 The patient returned from the restroom. NAD She does have asymmetric left tongue swelling. The airway is patent. The right side of the tongue is not effected at this time. 03/23/18 04:37 Recheck. Voice remains understandable. She is relaxed, NAD. No change in swelling or worsening. 03/23/18 04:51 The CBC was reviewed. Stable chronic anemia The patient was rechecked. Still isolated to the left side. The right side remains unaffected. No significant changes. She is relaxed and comfortable. No difficulty with breathing. 03/23/18 04:52 Recheck. Still left sided swelling only. She is able to breath easily from the nose. 03/23/18 04:57 I discussed ED to ED transfer with [facility] Dr Stewart given to ICU or step down at [facility] No signs of rapidly progressive swelling. NO significant changes with left side tongue and no lip swelling. She easily handles her secretions. I can easily understand her speech with some mild distortion. She is comfortable, stable, not showing signs of progression. Risk of emergent airway outweighs benefit of observation and transfer at this time. 03/23/18 05:02 03/23/18 05:16 The patient is doing well. No advance of the swelling. No difficulty with breathing or secretions. 03/23/18 05:24 EMS is in the ED. She is doing well without out shortness of breath. She continues to handle her secretions without any difficulty. On examination she has not had any worsening of the swelling. She has demonstrated well that she is stable for transfer as she protects her airway very well. Medical Decision Making - Lab Data Result diagrams: 03/23/18 04:35 03/23/18 04:35 Disposition Disposition: Transfer Clinical Impression: Angioedema Disposition: Acute Care Hospital Transfer Transfer To: [facility] Reason For Transfer: Angioedema Accepting Physician: Terry Time Discussed w/Accepting Physician: 05:02 Condition: (3) Guarded Forms: Patient Portal Access Time of Disposition: 05:02 Quality - Quality Measures Quality Measures: N/A - Blood Pressure Screening Does Patient Have Any of the Following: Active Dx of HTN Blood Pressure Classification: Pre-Hypertensive BP Reading Systolic Measurement: 194 Diastolic Measurement: 88 Screening for High Blood Pressure: Patient Exclusion, Hx of HTN [G9744]
[2018-03-23] MEDS ORDERED: DIPHENHYDRAMINE HCL 50 MG/ML VIAL IVP ONE (04:27)
[2018-03-23] MEDS ORDERED: EPINEPHRINE 1 MG/ML AMPUL IM ONE (04:27)
[2018-03-23] MEDS ORDERED: SODIUM CHLORIDE 0.9% 500 ML IV ONE (04:27)
[2018-03-23] MEDS ORDERED: METHYLPREDNISOLONE PF 125MG/VIAL IVP ONE (04:27)
[2018-03-23 04:42] LABS: BASO % 0.4 % (0-6); EOS % 1.2 % (0-6); GRAN % 46.7 % (47-80); HEMATOCRIT 31.3 % (35.0-47.0); HEMOGLOBIN 9.9 gm/dl (11.6-16.0); LYMPH % 41.9 % (16-45); MEAN CELL VOLUME 85.8 fl (81-97); MEAN CORPUSCULAR HEMOGLOBIN 27.1 pg (27-33); MEAN CORPUSCULAR HGB CONC 31.6 g/dl (32-36); MEAN PLATELET VOLUME 9.7 fl (7.4-10.4); MONO % 9.8 % (0-9); PLATELET COUNT 471 K/uL (130-400); RED BLOOD COUNT 3.65 M/uL (3.80-5.40); WHITE BLOOD COUNT W/O DIFF 5.6 K/uL (4.2-12.2)
[2018-03-23 04:53] LABS: CREATININE 1.1 mg/dL (0.5-0.9); PARTIAL THROMBOPLASTIN TIME 28.3 SECONDS (24.5-39.1); PROTHROMBIN TIME (PATIENT) 10.3 SECONDS (9.5-12.1)
== END 2018-03-23 05:33 | disposition short-term general hospital (02) ==
LOC: ER 04:17
DX: T78.3XXA Angioneurotic edema, initial encounter (principal); I10 Essential (primary) hypertension; F17.210 Nicotine dependence, cigarettes, uncomplicated; Z85.3 Personal history of malignant neoplasm of breast
CPT/HCPCS: 80048; 85025; 85610; 85730; 96361; 96372; 96374; 96375; 99285; J0171; J1200; J2930

== ENCOUNTER 2018-11-15 07:29 | Day surgery (SDC) | payer BC ==
[2018-11-15] MEDS ORDERED: PROPOFOL 10 MG/ML VIAL IV ONE (07:30)
[2018-11-15] MEDS ORDERED: LIDOCAINE 2% MDV (20MG/ML) 20ML VIAL IV ONE (07:30)
[2018-11-15] MEDS ORDERED: 0.9 % SODIUM CHLORIDE 1000ML 500 ML IV ONE (08:05)
[2018-11-15] MEDS ORDERED: EPINEPHRINE 1 MG/ML AMPUL IO ONE (09:30)
[2018-11-15] MEDS ORDERED: NEOM/BACI/POLY/HC 3.5 GM OPTH OINT OPTH ONE (09:30)
[2018-11-15] MEDS ORDERED: LIDOCAINE 2% MDV (20MG/ML) 20ML VIAL INJ ONE (09:30)
[2018-11-15] MEDS ORDERED: TETRACAINE HCL 0.5% OPTH 2ML SOLU OPTH ONE (09:30)
[2018-11-15] MEDS ORDERED: TIMOLOL MALEATE 0.5% 5ML BTL OPTH ONE (09:31)
[2018-11-15] MEDS ORDERED: BRIMONIDINE TARTRATE 0.2% OPTHALMIC DROPS OP ONE (09:31)
--- NOTE | 2018-11-16 20:19 | Operative Note ---
DATE OF PROCEDURE: 11/15/18. PREOPERATIVE DIAGNOSIS: Nuclear sclerotic and cortical cataract, left eye. POSTOPERATIVE DIAGNOSIS: Nuclear sclerotic and cortical cataract, left eye. OPERATION: Phacoemulsification of cataractous lens with implantation of intraocular lens. LENS IMPLANT USED: [employer] Model PCB00 + 18.5 diopters. COMPLICATIONS: None. PROCEDURE IN DETAIL: Following a retrobulbar and facial block, the patient was prepped and draped in the usual fashion for eye surgery. A lid speculum was placed in the left eye after which a 2.4 mm tunnel wound was placed at the temporal limbus and dissected into clear cornea. A paracentesis was placed at 2 o'clock hours to the left and right of the initial incision and the chamber deepened with Viscoelastic. The keratome was then used to enter the anterior chamber after which the continuous circular capsulorrhexis was accomplished without difficulty using a bent needle and a Utrata forceps. Hydrodissection and hydrodelineation of the lens was performed after which the nucleus of the lens was removed using the Phaco handpiece in the [id number] technique. The residual cortical material was irrigated and aspirated from the eye after which the bag and chamber were re-examined. The bag was re-inflated with Viscoelastic and the intraocular lens injected into the capsular bag where it centered well. The Viscoelastic was then copiously irrigated and aspirated from the eye after which the temporal tunnel wound and paracentesis were hydrated and the wounds were examined. They were noted to be watertight. The lid speculum was removed from the eye and the eye patched and shielded. The patient was transferred to the recovery room in satisfactory condition and given an appointment to be reexamined in the clinic later today or as directed by Dr. Godoy. JOB NUMBER: [id number] MTDD
== END 2018-11-15 10:15 | disposition home or self-care (01) ==
LOC: SUR 07:29
PROVIDERS: ATTEND Ophthalmology
DX: H25.12 Age-related nuclear cataract, left eye (principal); I10 Essential (primary) hypertension; F17.210 Nicotine dependence, cigarettes, uncomplicated
CPT/HCPCS: J0171; J7030